=== PATIENT | female | born 1940 | race Caucasian/White ===

== ENCOUNTER 2017-02-01 13:48 | Day surgery (SDC) | payer OTHER ==
[2017-02-01] MEDS ORDERED: BENADRYL ONE (14:14)
[2017-02-01] MEDS ORDERED: NS 250 ML ONE (14:14)
[2017-02-01] MEDS ORDERED: TYLENOL ONE (14:14)
[2017-02-01 14:39] LABS: HEMATOCRIT 34.8 % (37.0-47.0); HEMOGLOBIN 11.3 g/dL (12.0-16.0); MCH 32.8 PG (27-31); MCHC 32.5 g/dL (33-37); MCV 101.2 FL (81-99); PLT 10 X1000 (130-400); RBC 3.44 XMIL (4.2-5.4)
[2017-02-01 17:27] VITALS: BP 145/67
== END 2017-02-01 17:28 | disposition home or self-care (01) ==
LOC: INF 13:48
PROVIDERS: ATTEND Internal Medicine
DX: D69.6 Thrombocytopenia, unspecified (principal); C34.90 Malignant neoplasm of unspecified part of unspecified bronchus or lung; D46.9 Myelodysplastic syndrome, unspecified; Z79.899 Other long term (current) drug therapy
CPT/HCPCS: 36430; 85027; 86850; 86900; 86901; J7050; P9035

== ENCOUNTER 2017-02-06 13:10 | Inpatient (IN) ==
[2017-02-06] MEDS ORDERED: NS 1,000 ML IV PRN (13:29)
--- NOTE | 2017-02-06 13:31 | PROVIDER DOCUMENTATION ---
HPI-General Adult - General Stated Complaint: HEADACHE LOW PLATELETS Time Seen by Provider: 02/06/17 13:25 Source: patient, family Allergies/Adverse Reactions: Patient Allergies Allergy/AdvReac Type Severity Reaction Status Date / Time No Known Allergies Allergy Unverified 01/13/16 16:41 Home Medications: Home Medication List Medication Instructions Recorded Confirmed Last Taken Type Fenofibrate [Tricor] 145 mg PO DAILY 02/06/17 02/06/17 02/06/17 History LOVAstatin [Mevacor] 20 mg PO DAILY 02/06/17 02/06/17 02/06/17 History Montelukast Sodium [Singulair] 10 mg PO DAILY 02/06/17 02/06/17 02/06/17 History Omeprazole [Prilosec] 20 mg PO DAILY 02/06/17 02/06/17 02/06/17 History Pantoprazole [Protonix] 40 mg PO DAILY@0700 02/06/17 02/06/17 02/06/17 History - History of Present Illness -Gen Adult Nature of Presenting Problems: patient is a 76 y/o F that presents to the ER with headache and weakness from Dr.H García's office. wants patient to be a direct admit due platelet count was 10, she received platelets last week. Patient has history of Lung CA and MDS. She reports having fever, diarrhea and shortness of breath over the past few days. Location of Pain/Injury: reports: head Quality of Pain: reports: aching Severity: reports: mild Onset/Duration: reports: unsure Timing: reports: still present, constant Context/Activities at Onset: reports: none Modifying Factors: improves with: nothing Associated Symptoms: reports: diarrhea, fatigue, fever/chills, headaches, shortness of breath, weakness. denies: back/neck pain, constipation, dizziness , EENT symptoms, nausea, vomiting Similar Symptoms Previously?: No Recently seen or treated by another doctor?: Yes Review of Systems - Adult - REVIEW OF SYSTEMS - ADULT Constitutional: reports: fever, fatique. denies: chills Eyes: reports: no symptoms reported Ears, Nose, Mouth & Throat: reports: no symptoms reported Cardiovascular: denies: chest pain, orthopnea, palpitations, syncope Respiratory: reports: shortness of breath. denies: cough, wheezing Gastrointestinal: reports: diarrhea. denies: abdominal pain, nausea, vomiting Genitourinary: reports: no symptoms reported Musculoskeletal: reports: muscle weakness. denies: back pain, joint pain Integumentary: reports: no symptoms reported Neurological: reports: headache/migraines. 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) Respiratory: reports: COPD, cancer (lung) Gastrointestinal: reports: GERD, ulcer - PRIOR SURGERIES/PROCEDURES Surgical/Procedure History: reports: appendectomy, hysterectomy, orthopedic ( extremity), back/neck - IMMUNIZATION STATUS Childhood Immunizations: See Nurse Assessment Flu Vaccine: See Nurse Assessment - FAMILY HISTORY Family History: reviewed, not pertinent - SOCIAL HISTORY Smoking: quit greater than 1 year, cigarettes Living Situation: family Physical Exam-General - PHYSICAL EXAM-ADULT Initial Vital Signs Reviewed: Yes - CONSTITUTIONAL General Appearance: alert, mild distress - EYES Eyes: PERRL/EOMI, pink conjunctivae - HEAD, EARS, NOSE, MOUTH & THROAT HENMT: normocephalic/atraumatic, moist mucous membranes, normal ENT inspection - RESPIRATORY Respiratory: respiratory distress (mild), decreased breath sounds (right), rales (right base), increased rate - CARDIOVASCULAR Cardiovascular: regular rate, rhythm, no murmur - GASTROINTESTINAL (ABDOMEN) Abdominal Exam: normal bowel sounds, non tender, soft, no organomegaly, no pulsatile mass - MUSCULOSKELETAL Extremity: normal range of motion, normal inspection - SKIN Integumentary: normal color, warm/dry - NEUROLOGIC Neurologic: grossly normal, no motor/sensory deficits - PSYCHIATRIC Psych/Mental Status: normal mood/affect, normal thought content, normal thought process, oriented x 3 Progress - PLAN OF CARE/RESULTS Progress/Plan/Lab Results: Vital Signs Pulse Pulse Pulse Pulse Resp BP BP 02/06/17 15:35 93 H 29 H 102/51 02/06/17 15:29 94 H 20 100/53 02/06/17 15:25 93 H 27 H 100/53 02/06/17 14:56 100 H 105 H 98 H 104/53 02/06/17 14:51 102 H 26 H 104/53 02/06/17 14:25 96 H 22 120/58 02/06/17 13:37 97 H 26 H 102/47 BP BP Pulse Ox 02/06/17 15:35 97 02/06/17 15:29 96 02/06/17 15:25 96 02/06/17 14:56 104/43 102/47 02/06/17 14:51 91 L 02/06/17 14:25 94 L 02/06/17 13:37 No Known Allergies Allergy (Unverified 01/13/16 16:41) Fenofibrate [Tricor] 145 mg PO DAILY 02/06/17 LOVAstatin [Mevacor] 20 mg PO DAILY 02/06/17 Montelukast Sodium [Singulair] 10 mg PO DAILY 02/06/17 Omeprazole [Prilosec] 20 mg PO DAILY 02/06/17 Pantoprazole [Protonix] 40 mg PO DAILY@0700 02/06/17 Laboratory 02/06/17 02/06/17 02/06/17 15:25 13:40 13:40 WBC RBC Hgb Hct MCV MCH MCHC RDW Std Deviation Plt Count MPV Immature Gran % (Auto) Neut % (Auto) Lymph % (Auto) Phelps % (Auto) Eos % (Auto) Baso % (Auto) Immature Gran # (Auto) Neut # (Auto) Lymph # (Auto) Phelps # (Auto) Eos # (Auto) Baso # (Auto) Segmented Neutrophils Band Neutrophils Lymphocytes Monocytes Eosinophils Basophils Metamyelocytes Myelocytes Promyelocytes Nucleated RBCs Atypical Lymphocytes Blast Cells Hypochromia Vacuolization Toxic Granulation Dohle Bodies Large Platelets Polychromasia Poikilocytosis Basophilic Stippling Anisocytosis Microcytosis Macrocytosis Spherocytes Sickle Cells Target Cells Ovalocytes Stomatocytes [place] Bodies [place] Cells Unidentified Cells Schistocytes PT 10.7 INR 1.05 PTT (Actin FS) 30.5 Specimen Type ARTERIAL Sample Site L RADIAL pH 7.45 pCO2 37 pO2 72 HCO3 26.2 H Base Excess 1.7 Oxyhemoglobin 93.6 L ABG O2 Sat (Calculated) 14.1 L ABG O2 Saturation 96.9 ABG Carboxyhemoglobin 1.80 ABG Methemoglobin 1.5 Hadley Test YES A-a O2 Difference 138.0 Total Hemoglobin 10.7 L Lactate 0.70 Liter Flow 4.0 Blood Gas Modality ROOM AIR FiO2 % 36.0 Sodium 137 Potassium 4.5 Chloride 98 Carbon Dioxide 26 Anion Gap 13 BUN 38 H Creatinine 1.3 H Estimated GFR/1.73 m2 40 BUN/Creatinine Ratio 29 Glucose 108 H Calculated Osmolality 283 Calcium 9.5 Total Bilirubin 0.83 AST 16 ALT 13 Alkaline Phosphatase 69 Total Protein 7.1 Albumin 3.5 Globulin 3.6 Albumin/Globulin Ratio 1.0 02/06/17 13:40 WBC 1.25 L RBC 2.77 L Hgb 9.1 L Hct 27.5 L MCV 99.3 H MCH 32.9 H MCHC 33.1 RDW Std Deviation 14.2 Plt Count < 6 L* MPV 12.0 H Immature Gran % (Auto) 7.2 H Neut % (Auto) 38.4 L Lymph % (Auto) 47.2 Phelps % (Auto) 4.8 Eos % (Auto) 1.6 Baso % (Auto) 0.8 Immature Gran # (Auto) 0.09 H Neut # (Auto) 0.48 L* Lymph # (Auto) 0.59 L Phelps # (Auto) 0.06 L Eos # (Auto) 0.02 Baso # (Auto) 0.01 Segmented Neutrophils Cancelled Band Neutrophils Cancelled Lymphocytes Cancelled Monocytes Cancelled Eosinophils Cancelled Basophils Cancelled Metamyelocytes Cancelled Myelocytes Cancelled Promyelocytes Cancelled Nucleated RBCs Cancelled Atypical Lymphocytes Cancelled Blast Cells Cancelled Hypochromia Cancelled Vacuolization Cancelled Toxic Granulation Cancelled Dohle Bodies Cancelled Large Platelets Cancelled Polychromasia Cancelled Poikilocytosis Cancelled Basophilic Stippling Cancelled Anisocytosis Cancelled Microcytosis Cancelled Macrocytosis Cancelled Spherocytes Cancelled Sickle Cells Cancelled Target Cells Cancelled Ovalocytes Cancelled Stomatocytes Cancelled [place] Bodies Cancelled [place] Cells Cancelled Unidentified Cells Cancelled Schistocytes Cancelled PT INR PTT (Actin FS) Specimen Type Sample Site pH pCO2 pO2 HCO3 Base Excess Oxyhemoglobin ABG O2 Sat (Calculated) ABG O2 Saturation ABG Carboxyhemoglobin ABG Methemoglobin Hadley Test A-a O2 Difference Total Hemoglobin Lactate Liter Flow Blood Gas Modality FiO2 % Sodium Potassium Chloride Carbon Dioxide Anion Gap BUN Creatinine Estimated GFR/1.73 m2 BUN/Creatinine Ratio Glucose Calculated Osmolality Calcium Total Bilirubin AST ALT Alkaline Phosphatase Total Protein Albumin Globulin Albumin/Globulin Ratio Orders Category Date Time Status Orthostatic Vital Signs NOW Care 02/06/17 13:30 Active Saline Loc DIRECTED Care 02/06/17 13:29 Active CHEST-2 VIEWS [RAD] Stat Exams 02/06/17 13:31 Draft ABG [RESP] Routine Lab 02/06/17 15:25 Completed BLOOD CULTURE [BLDCUL] Stat Lab 02/06/17 13:45 Results CBC WITH ELECTRONIC DIFF [HEME] Stat Lab 02/06/17 13:40 Completed COMPREHENSIVE METABOLIC PANEL [CHEM] Stat Lab 02/06/17 13:40 Completed OCCULT BLOOD NON-FECES Stat Lab 02/06/17 13:44 Ordered OCCULT BLOOD SCREENING [STOOL] Stat Lab 02/06/17 13:44 Ordered PROTIME WITH INR [COAG] Stat Lab 02/06/17 13:40 Completed PTT [COAG] Stat Lab 02/06/17 13:40 Completed TYPE & SCREEN [BBK] Stat Lab 02/06/17 13:40 Results URINALYSIS W/POSS RFLX CULT [URINALYSIS] Stat Lab 02/06/17 13:36 Uncollected 0.9% Sodium Chloride Inj [Ns] 1,000 ml Med 02/06/17 13:29 Active IV 125 mls/hr EKG [EKG] Stat Ther 02/06/17 13:30 Ordered - XRAY 1 XRAY Study: Chest Impression: Abnormal XRAY Interpretation: increased density mid and lower right lung with pleural thickening - CONSULTS/PCP/HOSPITALIST Notification #1 *Consult/PCP/Hospitalist*: Time Discussed: 15:40 Consult Disposition: Admit Departure - Departure Time of Disposition Order: 15:41 DIAGNOSIS: Thrombocytopenia, Immunocompromised state Neutropenia Qualifiers: Neutropenia type: secondary to cancer chemotherapy Qualified Code(s): D70.1 - Agranulocytosis secondary to cancer chemotherapy Disposition: ADMITTED INPATIENT 09 Certified Medical Emergency: Emergent Condition: Stable Attestation - Scribe Verification/Attestation Scribe:: Maik Cortes Acting as Scribe for:: Diogo Mcdonald Scribe documention review:: This chart was documented by a scribe and accurately reflects the service the provider performed and the decisions made by the provider. Physician Attestation - Physician Attestation I, the provider, attest to the following statement:: Diogo Mcdonald Physician documentation Attestation:: This documentation recorded by the scribe accurately reflects the service I personally performed and the decisions made by me.
[2017-02-06 14:43] LABS: ALBUMIN 3.5 g/dL (3.5-5.0); CALCIUM 9.5 mg/dL (8.8-10.2); POTASSIUM 4.5 mmol/L (3.5-5.1); TOTAL BILIRUBIN 0.83 mg/dL (0.20-1.00); TOTAL PROTEIN 7.1 g/dL (6.3-8.3)
[2017-02-06 14:59] LABS: BASO% 0.8 % (0.0-0.8); EOS# 0.02 X1000 (0.0-0.7); EOS% 1.6 % (0.0-10.0); HEMATOCRIT 27.5 % (37.0-47.0); HEMOGLOBIN 9.1 g/dL (12.0-16.0); IMM GRAN# 0.09 X1000 (0.0-0.04); IMM GRAN% 7.2 % (0.0-0.5); LYMPH# 0.59 X1000 (1.2-3.4); LYMPH% 47.2 % (20.5-51.1); MCH 32.9 PG (27-31); MCHC 33.1 g/dL (33-37); MCV 99.3 FL (81-99); MONO# 0.06 X1000 (0.11-0.59); MONO% 4.8 % (1.7-9.3); NEUT% 38.4 % (42.2-75.2); RBC 2.77 XMIL (4.2-5.4)
[2017-02-06 15:01] LABS: MANUAL DIFF NEEDED? NO
[2017-02-06 15:02] LABS: PLT < 6 X1000 (130-400)
--- NOTE | 2017-02-06 15:13 | Diag Imaging Result Document ---
PROCEDURE NAME: CHEST-2 VIEWS - 02/06/2017 FRONTAL AND LATERAL CHEST, TWO VIEWS: COMPARISON: 10/24/2016. FINDINGS: There is increased density in the mid and lower right lung with pleural thickening or an effusion. The overall appearance is quite similar to that of the prior exam. Old fracture to the posterior right fifth rib. The left lung remains well expanded and clear. The vessels are not distended. IMPRESSION: Stable chest.
[2017-02-06 15:21] LABS: INR 1.05; PROTIME 10.7 Seconds (9.2-11.7); PTT 30.5 Seconds (22.0-36.0)
[2017-02-06 15:34] LABS: ALLEN TEST YES; BE 1.7 mmoll (-3.0-3.0); BLOOD TYPE ARTERIAL; DRAW SITE L RADIAL; METHB 1.5 % (0.0-1.5); O2(CT) 14.1 mL/dL (15.0-23.0); PCO2(98.6) 37 mmHg (35-45); PO2(98.6) 72 mmHg (60-100); SAMPLE BLOOD; SAO2 96.9 % (95.0-100.0); THB 10.7 g/dL (11.5-17.4); pH(98.6) 7.45 (7.35-7.45)
[2017-02-06 15:36] LABS: MODALITY ROOM AIR
[2017-02-06] MEDS ORDERED: DUONEB (A & A) INH PRN (15:50)
[2017-02-06] MEDS ORDERED: VANCOMYCIN IV PER PHARMACY MISC SCH (16:00)
[2017-02-06] MEDS: ZOSYN 3.375 GM/NS 50 ML IV SCH (17:03)
[2017-02-06 17:11] LABS: IRON SATURATION 21 %; TIBC 245 ug/dL; TOTAL IRON 52 ug/dL (49-151); UNBOUND IRON 193 ug/dL (112-346)
--- NOTE | 2017-02-06 17:12 | Diag Imaging Result Document ---
PROCEDURE NAME: ANGIOGRAM/PULMONARY ARTERIES - 02/06/2017 CT PULMONARY ANGIOGRAM WITH INTRAVENOUS 02/06/2017: A CT dose reduction protocol was used. COMPARISON: 01/13/2016. FINDINGS: Axial CT images of the chest were obtained after administering intravenous contrast. Coronal MIP images were generated. There is no pulmonary embolism. Stable significant volume loss on the right with shift of the heart into the right side of the chest. Stable severe COPD. Stable areas of consolidation in the right upper and lower lung zones. No new infiltrates. Stable hiatal hernia. There is a posterior right 9th rib fracture that is healing. This was not present previously. Otherwise, there are stable right-sided rib deformities. IMPRESSION: Increasing chronic rib fractures on the right. Otherwise, no acute disease or change from prior. [facility]
[2017-02-06 17:24] LABS: FREE T4 1.23 ng/dL (0.93-1.70)
[2017-02-06 17:45] LABS: RETIC% 0.3 % (0.8-2.1); RETIC-HE 29.9 PG (28.2-36.6)
[2017-02-06 18:03] LABS: URINE MICRO REVIEW NEEDED? NO; URINE SOURCE CLEAN CATCH
[2017-02-06 18:09] LABS: BILIRUBIN URINE NEGATIVE (NEGATIVE); BLOOD URINE MODERATE (NEGATIVE); COLOR YELLOW; GLUCOSE URINE NEGATIVE (NEGATIVE); LEUKOCYTES URINE MODERATE (NEGATIVE); NITRITE URINE NEGATIVE (NEGATIVE); PROTEIN URINE 30 mg/dL (NEGATIVE); TURBIDITY URINE CLEAR (CLEAR); UR EPITHELIAL CELLS <10 /HPF (<10); URINE BACTERIA 2+ /HPF; URINE CULTURE NEEDED? YES; URINE WBC TNTC /HPF (<10); UROBILINOGEN URINE NORMAL (NORMAL)
[2017-02-06] MEDS: DUONEB (A & A) INH SCH ×2 (19:30→23:30)
[2017-02-06] MEDS: NS 1,000 ML IV SCH (20:00)
[2017-02-06] MEDS: MORPHINE IV PRN (20:17)
[2017-02-06] MEDS ORDERED: TYLENOL PO ONE (20:36)
[2017-02-06] MEDS ORDERED: VANCOMYCIN 2 GM in NS 500 ML IV ONE (21:00)
[2017-02-06] MEDS: LEVAQUIN 750 MG/D5W 150 ML IV SCH (21:03)
--- NOTE | 2017-02-06 21:03 | HISTORY AND PHYSICAL ---
CHIEF COMPLAINT: Shortness of breath, hemoptysis. HISTORY OF PRESENT ILLNESS: Mrs. Perez is a 76-year-old female with a history of non- small cell lung cancer, COPD, dextrocardia, recurrent pneumonia who is followed by Drs. García and Maricarmen on an outpatient basis. She is currently on Odeon chemotherapy which was last performed last Monday. The patient states that for 4 days she has been having fairly severe diarrhea, shortness of breath and ultimately hemoptysis. She states that her diarrhea has stopped but she has been having worsening shortness of breath and when asked to quantify her hemoptysis she said she is coughing holger blood. She reports a fever of 102.3. She denies any overt chest pain. She denies any abdominal pain. Again, her diarrhea has resolved. She also reports having fairly severe reflux type symptoms with bile production but no nausea, vomiting. She reports orthopnea but no lower extremity edema and no other acute symptoms. She went to Dr. García' s office this morning. Dr. García directed her toward the ER. In the ER today labs and diagnostics were done. She was noted to be pancytopenic with critical thrombocytopenia and neutropenia. A chest x-ray shows increased density in the mid and lower right lung with pleural thickening or effusion and overall appearance is similar to that of the previous exam. Her vital signs are stable, she is now going to be admitted for further treatment and evaluation. PAST MEDICAL HISTORY: 1. Non-small cell lung cancer. 2. COPD. 3. Chronic anemia. 4. Hyperlipidemia. 5. Dextrocardia. 6. Recurrent pneumonia. 7. Myelodysplastic syndrome. 8. Osteoarthritis. PAST SURGICAL HISTORY: Thoracotomy, total hip arthroplasty, Rasta fundoplication, hysterectomy, appendectomy, hemorrhoidectomy, left hand surgery. SOCIAL HISTORY: Patient is and lives alone. She quit smoking in the . She denies alcohol or illicit drug use. FAMILY HISTORY: Significant for CAD, cancer and diabetes. ALLERGIES: No known drug allergies. HOME MEDICATIONS: TriCor 145 mg p.o. daily, Mevacor 20 mg daily, Singulair 10 mg p.o. daily, Protonix 40 mg daily. REVIEW OF SYSTEMS: Fourteen-point review of systems obtained and found to be negative with the exception of the HPI. PHYSICAL EXAMINATION: VITAL SIGNS: Blood pressure is 107/52, heart rate 73, respiratory 23, O2 saturation 97%. Temperature has not been recorded. GENERAL: This is an elderly female lying in hospital bed in no acute distress. NEUROLOGIC: The patient is awake, alert, oriented. She follows commands without focal deficits. HEENT: Head atraumatic, normocephalic. Pupils equal, round, reactive to light. Oral mucosa is moist. Trachea is midline. No JVD. No carotid bruits. CHEST: Diminished at the bases with perhaps some scattered rhonchi and no increased work of breathing noted. CV: Tachy regular, S1-S2 is noted. Heart sounds are heard over the right chest. There is a 2/6 murmur noted. GI: Soft, nondistended, nontender. Bowel sounds positive. EXTREMITIES: Trace edema. Diminished pulses but palpable bilaterally. DIAGNOSTIC DATA: Chest x-ray shows stable chest, increased density in the mid and right lower lung zones of pleural thickening or effusion. WBC 1.25, hemoglobin 9.1, hematocrit 27.5, platelet count less than 6000, neutrophils are 0.48. PT 10.7, INR 1.07. ABG on room air pH 7.45, CO2 37, PO2 72, bicarb 26.2, sodium 137, potassium 4.5, chloride 98, CO2 26, anion gap 13, BUN 38, creatinine 1.3, glucose 108, calcium 9.5. LFTs within normal limits. ASSESSMENT AND PLAN: 1. Shortness of breath/hemoptysis: Unclear as to the etiology, likely multifactorial, for now we are going to rule out PE with a CTA. We will treat for recurrent pneumonia and given her history of Pseudomonas in the past we will double cover her with Levaquin and Zosyn. We are going to consult Dr. Hernadez and Dr. García. Will continue oxygen as needed, p.r.n. nebs and aggressive pulmonary toilet. 2. Pancytopenia: The patient is going to receive 2 units of platelets now. We are going to check full iron studies and trend her blood counts, Dr. García has been consulted. 3. Recurrent pneumonia: Blood cultures have been obtained. We are going to continue broad- spectrum antibiotics, breathing treatments and aggressive pulmonary toilet. 4. Mild renal insufficiency: Likely prerenal, fluids have been added. 5. Non-small cell lung cancer: Dr. Hernadez and Dr. García have been consulted. Patient is on chemo, we will defer to pulmonology and Hematology/Oncology. 6. MDS. Aware. has been consulted. The patient will receive 2 units of platelets today. 7. Gastrointestinal and deep vein thrombosis prophylaxis provided with proton pump inhibitor and Lovenox. Further recommendations to follow. Dictated by SEYMOUR Johnson for Reina Reyes MD The patient was seen and examined by me. I agree with the assessment and plan as dictated. [facility]
[2017-02-07] MEDS ORDERED: FLEXERIL PO ONE (02:18)
[2017-02-07] MEDS: DUONEB (A & A) INH SCH ×5 (03:30→22:47)
[2017-02-07] MEDS: ZOSYN 3.375 GM/NS 50 ML IV SCH ×4 (03:57→22:00)
[2017-02-07 06:57] LABS: CALCIUM 8.7 mg/dL (8.8-10.2); POTASSIUM 4.5 mmol/L (3.5-5.1)
[2017-02-07 07:05] LABS: BASO% 5.5 % (0.0-0.8); EOS# 0.01 X1000 (0.0-0.7); EOS% 1.8 % (0.0-10.0); HEMATOCRIT 21.9 % (37.0-47.0); HEMOGLOBIN 7.1 g/dL (12.0-16.0); LYMPH# 0.12 X1000 (1.2-3.4); LYMPH% 21.8 % (20.5-51.1); MANUAL DIFF NEEDED? YES; MCHC 32.4 g/dL (33-37); MCV 101.9 FL (81-99); MONO# 0.04 X1000 (0.11-0.59); MONO% 7.3 % (1.7-9.3); MPV 8.3 FL (7.4-10.4); NEUT% 63.6 % (42.2-75.2); PLT < 6 X1000 (130-400); RBC 2.15 XMIL (4.2-5.4)
[2017-02-07 07:29] LABS: BANDS 12 % (0-1); LYMPHS 20 % (21-51); NRBC 1 % (0-0)
[2017-02-07 07:30] LABS: HYPOCHROM 1+
[2017-02-07] MEDS ORDERED: LOVENOX SUBQ SCH (09:00)
[2017-02-07] MEDS ORDERED: TYLENOL PO ONE ×2 (11:34→17:47)
[2017-02-07] MEDS ORDERED: BENADRYL PO ONE ×2 (11:34→17:47)
[2017-02-07] MEDS: NS 1,000 ML IV SCH ×2 (11:42→17:28)
[2017-02-07] MEDS: PRILOSEC PO SCH (11:57)
[2017-02-07] MEDS ORDERED: SOLU-MEDROL IV ONE (13:33)
[2017-02-07] MEDS: MEVACOR PO SCH (14:20)
[2017-02-07] MEDS: SINGULAIR PO SCH (14:20)
[2017-02-07] MEDS: TRICOR PO SCH (14:25)
[2017-02-07] MEDS: GRANIX SUBQ SCH (14:30)
--- NOTE | 2017-02-07 16:48 | PROGRESS NOTE ---
DATE: 02/07/2017 SUBJECTIVE: The patient is resting comfortably on the stretcher. She states that she still feels short of breath. She is on 4 L of supplemental oxygen which is which she uses at home. Her platelet count is still quite low. OBJECTIVE: Vital Signs: Temperature 99 degrees, blood pressure 98/60, heart rate 102, respirations 18, O2 saturations 95% on 4 L nasal cannula. General: This is a chronically ill- appearing elderly female lying in bed in no acute distress. Head: Normocephalic, atraumatic. Heart: S1, S2. Normal. Tachycardic. Lungs: Coarse breath sounds bilaterally. No wheezing. No rales. Abdomen: Positive bowel sounds. Soft, nontender, nondistended. Extremities: Trace edema in the left lower extremity. Neurologic: The patient is alert and oriented x3. LABS: White blood cell count 0.5, hemoglobin 7.1, hematocrit 21, platelet count : less than 6, ANC 0.35. BUN 29, creatinine 1.2, potassium 4.5, sodium 141, glucose 125. ASSESSMENT AND PLAN: 1. Acute on chronic hypoxemic respiratory failure. The patient is back to her baseline level of supplemental oxygen. We will continue with bronchodilator therapy and IV antibiotics. Pulmonary has been consulted for further assistance. 2. Myelodysplastic syndrome. The patient is currently pancytopenic. Oncology has been consulted for further management. The patient has received 2 bags of platelets today in addition to the 2 bags that she received yesterday. 3. History of lung cancer. Aware. 4. Neutropenia. Continue with neutropenic precautions. Management as per Hematology/Oncology. [facility]
[2017-02-07] MEDS: LEVAQUIN 750 MG/D5W 150 ML IV SCH (20:30)
--- NOTE | 2017-02-07 21:44 | CONSULTATION ---
DATE OF CONSULTATION: 02/07/2017 REASON FOR CONSULTATION: Hemoptysis. HISTORY OF PRESENT ILLNESS: Ms. Godinez is a 76-year-old white female with a [id number] history for tobacco, status post chemotherapy and radiation therapy for a stage III lung cancer diagnosed in 2010 with no evidence of recurrence, who developed high risk myelodysplastic syndrome with refractory anemia and excess blast identified on a bone marrow of 01/23/2016. The patient was seen in September when she was admitted to the hospital with a gram-negative pneumonia and developed acute hypoxemic respiratory failure on the background of chronic hypercapnic respiratory failure. She did require BiPAP. She did not require intubation. End of life discussions during that admission were notable in that patient requested no intubation and only comfort measures if it appeared that she would not survive. Fortunately she did survive and was discharged home. The patient developed fevers this weekend greater than 102 degrees. Blood work revealed profound thrombocytopenia with a platelet count less than 6000 and absolute neutrophil count of 1000. Platelet count has remained low despite transfusion. Absolute neutrophil count remains low at 350. She has had episodes of minor hemoptysis amounting to less than 1/4 cup since her hospital admission. CT pulmonary angiogram was performed which revealed chronic post treatment changes in the right with shift of the heart to the right chest. She reports she remains weak. Her last fever was approximately 24 hours ago. PAST MEDICAL HISTORY/PROBLEM LIST: 1. Stage III lung cancer without evidence of recurrence as per above. 2. Myelodysplastic syndrome as per above. 3. Status post left hip replacement. 4. Status post neck fusion. 5. Status post appendectomy. 6. Status post hysterectomy. 7. Osteoarthritis. 8. Dyslipidemia. 9. Status post surgery on the left hand following fracture. SOCIAL HISTORY: Prior tobacco use but none for several years. No alcohol use. She is . FAMILY HISTORY: Noncontributory to current presentation. REVIEW OF SYSTEMS: As noted in the HPI. PHYSICAL EXAMINATION: General: Reveals a chronically ill-appearing, white female, with no increased work of breathing. Vital Signs: Blood pressure 103/48, heart rate 86, respiration rate 20, oxygen saturation 99% on 50% face mask. HEENT: Pupils are equal and reactive. Oropharynx is clear. Neck: Supple. Chest: Reveals decreased breath sounds right base with bilateral rhonchi. No significant wheezing. Cardiac: Distant heart sounds. Normal S1, normal S2. Abdomen: Soft without hepatosplenomegaly. Extremities: Without edema. LABORATORIES: White blood count 0.55, hemoglobin 7.1, platelet count less than 6000. Sodium 141, potassium 4.5, chloride 104, bicarbonate 25, BUN 29, creatinine 1.2. ProBNP is elevated at 2289. IMPRESSION: A 76-year-old white female with prior treatment for lung cancer without evidence of recurrence, myelodysplastic syndrome, profound thrombocytopenia, neutropenia, fevers, and minor hemoptysis. Hemoptysis is likely related to profound neutropenia, mild uremia, and vascular friability associated with prior radiation treatment in the lung. RECOMMENDATIONS: 1. Platelet management as per Dr. García. She is to receive Granix along with platelet transfusions. 2. Continue broad-spectrum antibiotics as you are doing. 3. Additional recommendations pending hospital course. Would recommend confirming patient's code status in the event she does not continue to improve.
[2017-02-08] MEDS: ZOSYN 3.375 GM/NS 50 ML IV SCH ×3 (03:06→19:11)
[2017-02-08] MEDS: DUONEB (A & A) INH SCH ×6 (03:35→23:35)
[2017-02-08] MEDS: PRILOSEC PO SCH (06:42)
[2017-02-08 07:16] LABS: CALCIUM 8.9 mg/dL (8.8-10.2); HEMATOCRIT 28.1 % (37.0-47.0); HEMOGLOBIN 9.3 g/dL (12.0-16.0); IMM GRAN# 0.05 X1000 (0.0-0.04); IMM GRAN% 8.6 % (0.0-0.5); LYMPH# 0.21 X1000 (1.2-3.4); LYMPH% 36.2 % (20.5-51.1); MANUAL DIFF NEEDED? YES; MCH 31.5 PG (27-31); MCHC 33.1 g/dL (33-37); MCV 95.3 FL (81-99); MONO# 0.02 X1000 (0.11-0.59); MONO% 3.4 % (1.7-9.3); NEUT% 51.8 % (42.2-75.2); POTASSIUM 5.1 mmol/L (3.5-5.1); RBC 2.95 XMIL (4.2-5.4)
[2017-02-08 07:18] LABS: PLT < 6 X1000 (130-400)
[2017-02-08 07:56] LABS: BANDS 4 % (0-1); LYMPHS 44 % (21-51)
[2017-02-08] MEDS: GRANIX SUBQ SCH (09:16)
[2017-02-08] MEDS: VANCOMYCIN 1,500 MG in NS 250 ML IV SCH (09:16)
[2017-02-08] MEDS: TRICOR PO SCH (09:17)
[2017-02-08] MEDS: SINGULAIR PO SCH (09:17)
[2017-02-08] MEDS: MEVACOR PO SCH (09:17)
[2017-02-08] MEDS: MORPHINE IV PRN (11:01)
[2017-02-08] MEDS ORDERED: TYLENOL PO ONE (12:58)
[2017-02-08] MEDS ORDERED: BENADRYL PO ONE (12:58)
[2017-02-08] MEDS ORDERED: SOLU-MEDROL IV ONE (12:59)
--- NOTE | 2017-02-08 13:36 | PROGRESS NOTE ---
DATE: 02/08/2017 SUBJECTIVE: The patient is resting comfortably in bed. She is currently on a Ventimask. She states that she did eat her breakfast this morning. OBJECTIVE: Vital Signs: Temperature 97.8 degrees, blood pressure 117/53, heart rate 84, respirations 17, oxygen saturations 100% on Ventimask. General: This is an elderly female, lying in bed in no acute distress. Head: Normocephalic, atraumatic. Heart: S1, S2. Normal. Regular rate and rhythm. Lungs: Mild expiratory wheezes. No crackles. No rales. Abdomen: Positive bowel sounds. Soft, nontender, nondistended. Extremities: No edema. No cyanosis. No calf tenderness. Neurologic: The patient is alert and oriented x3. No focal deficits noted. LABS: White blood cell count 0.5, hemoglobin 9.3, hematocrit 28, platelets less than 6. Sodium 141, potassium 5.1, chloride 104, CO2 27, BUN 18, creatinine 1, glucose 124. ASSESSMENT AND PLAN: 1. Acute on chronic hypoxemic respiratory failure. The patient is currently on a Ventimask. Continue with intravenous antibiotics and bronchodilator therapy. Pulmonary is following. 2. Neutropenia. The patient is on Granix. Management as per the breaker machine tender. 3. Severe thrombocytopenia. The patient has received several units of platelets, and there has been no response to the transfusions. Further recommendations to follow by the breaker machine tender. 4. Urinary tract infection. Continue on intravenous antibiotic therapy. 5. Myelodysplastic syndrome. Aware.
[2017-02-08] MEDS: LEVAQUIN 750 MG/D5W 150 ML IV SCH (20:57)
[2017-02-08 22:34] LABS: HEMOGLOBIN 8.8 g/dL (12.0-16.0); MCH 31.7 PG (27-31); MCHC 32.6 g/dL (33-37); MCV 97.1 FL (81-99); RBC 2.78 XMIL (4.2-5.4)
[2017-02-08 22:43] LABS: PLT < 6 X1000 (130-400)
[2017-02-09] MEDS: ZOSYN 3.375 GM/NS 50 ML IV SCH ×5 (00:15→22:42)
[2017-02-09] MEDS: DUONEB (A & A) INH SCH ×5 (03:43→19:55)
[2017-02-09] MEDS: PRILOSEC PO SCH (06:30)
[2017-02-09] MEDS: MORPHINE IV PRN ×2 (06:43→22:20)
[2017-02-09 07:48] LABS: AGAP 10; BUN 19 mg/dL (8-22); CALCIUM 9.3 mg/dL (8.8-10.2); CHLORIDE 103 mmol/L (98-107); COSMO 285; POTASSIUM 3.9 mmol/L (3.5-5.1); SODIUM 142 mmol/L (136-145); TCO2 29 mmol/L (25-35)
[2017-02-09 07:53] LABS: EOS# 0.01 X1000 (0.0-0.7); EOS% 1.3 % (0.0-10.0); HEMATOCRIT 27.7 % (37.0-47.0); LYMPH# 0.27 X1000 (1.2-3.4); LYMPH% 34.6 % (20.5-51.1); MANUAL DIFF NEEDED? YES; MCH 31.3 PG (27-31); MCHC 32.5 g/dL (33-37); MCV 96.2 FL (81-99); MONO# 0.07 X1000 (0.11-0.59); NEUT% 55.1 % (42.2-75.2); PLT 6 X1000 (130-400); RBC 2.88 XMIL (4.2-5.4)
[2017-02-09 07:59] LABS: LYMPHS 48 % (21-51); MONO 4 % (1-9)
[2017-02-09] MEDS ORDERED: BENADRYL PO ONE (08:39)
[2017-02-09] MEDS ORDERED: TYLENOL PO ONE (08:39)
[2017-02-09] MEDS ORDERED: SOLU-MEDROL IV ONE (08:40)
[2017-02-09] MEDS: SINGULAIR PO SCH (10:55)
[2017-02-09] MEDS: MEVACOR PO SCH (10:55)
[2017-02-09] MEDS: TRICOR PO SCH (10:55)
[2017-02-09] MEDS ORDERED: NS 500 ML ONE (11:32)
[2017-02-09] MEDS: GRANIX SUBQ SCH (11:39)
--- NOTE | 2017-02-09 16:02 | PALLIATIVE CARE CONSULTATION ---
DATE: 02/09/2017 REQUESTING PHYSICIAN: Arlet García M.D. REASON FOR CONSULTATION: Goals of care. HISTORY OF PRESENT ILLNESS: This is a 76-year-old, female with a past medical history of non-small cell lung cancer, COPD, chronic anemia, hyperlipidemia, dextrocardia, recurrent pneumonia, MDS and osteoarthritis. She was most recently admitted on 02/06/2017 after being referred to the ER by Dr. García for complaints of progressive shortness of breath and hemoptysis. It was also reported that she had severe diarrhea in the days prior to this admission but that has since subsided. She also reported a fever with T-max of 102.3 degrees. Currently Ms. Godinez is sitting up on the bedside. She complains of full body aches. She also complains of shortness of breath that is described as severe with exertion. She states that she is only able to transfer to the bedside commode and back to the bed, and feels very weak and short of breath after doing so. She has 2 daughters that are both at the bedside. The Palliative Care team has been consulted to assist with goals of care. REVIEW OF SYSTEMS: Twelve point review of systems has been conducted and otherwise negative except those mentioned in the HPI. PAST MEDICAL HISTORY: See HPI. PAST SURGICAL HISTORY: 1. Rasta fundoplication. 2. Hysterectomy. 3. Appendectomy. 4. Hemorrhoidectomy. 5. Left hand surgery. 6. Total hip surgery. 7. Thoracotomy. SOCIAL HISTORY: Prior to this admission she lived in an apartment alone. She is a . She is a past smoker. Alcohol and drug use have been denied. She has 2 daughters who are very attentive to her care. FAMILY HISTORY: Positive for CAD, cancer and diabetes mellitus. PHYSICAL EXAMINATION: General: This is an elderly, female, who is sitting up on the bedside. She does not appear to be in any acute distress at this time. HEENT: Atraumatic, normocephalic. Neck: Trachea is midline. Cardiovascular: Increased rate, regular rhythm. Pulmonary: Lung sounds are diminished. Respirations are nonlabored at rest. Abdomen: Soft. Bowel sounds are active. Extremities: Trace edema noted to bilateral lower extremities. Pulses are palpable. IMPRESSION: This is a 76-year-old, female with a past medical history as listed above in the HPI. I met with the patient and her 2 daughters to discuss goals of care. We discussed advanced directives and Power of [employer]. Ms. Godinez does not have either document, however, she voices that her 2 daughters understand her wishes and are to honor those wishes in the event that she is unable to make decisions for herself. She states that she would not want to be intubated or placed on a ventilator for any reason, however, she would want CPR, defibrillation and ACLS medications to stimulate her heart. Therefore a DNR Level 2 Order will be placed. It appears that Ms. Godinez's palliative performance scale is 40% at this time. The Palliative Care team will continue to follow daily until discharge. Thank you for this consultation. Dictated by SEYMOUR Singer for Baljinder Hernadez MD
--- NOTE | 2017-02-09 19:49 | PROGRESS NOTE ---
DATE: 02/09/2017 SUBJECTIVE: The patient states that she does not feel good today. She complains of shortness of breath. She is currently on a Ventimask. OBJECTIVE: Vital Signs: Temperature 97.3 degrees, blood pressure 105/58, heart rate 96, respirations 22, O2 saturations 99% on 50% Ventimask. General: This is an elderly female, lying in bed, in no acute distress. Head: Normocephalic, atraumatic. Heart: S1, S2 normal, tachycardic. Lungs: Clear to auscultation bilaterally. No crackles. No rales. Abdomen: Positive bowel sounds. Soft, nontender, nondistended. Extremities: No edema. No cyanosis. No calf tenderness. Neurologic: The patient is alert and oriented x3. LABS: White blood cell count 0.7, hemoglobin 9, hematocrit 27, platelets 6000. Sodium 142, potassium 3.9, chloride 103, CO2 29, BUN 19, creatinine 0.9. ASSESSMENT AND PLAN: 1. Acute on chronic hypoxemic respiratory failure. The patient remains on a Ventimask. Continue with IV antibiotics and bronchodilator therapy. 2. Neutropenia. Continue on Granix and neutropenic precautions. 3. Severe thrombocytopenia. Management as per the oncologist. The patient is scheduled to receive a transfusion today. 4. Urinary tract infection. Continue on IV antibiotic therapy. The urine culture showed mixed deana. 5. Myelodysplastic syndrome. Aware.
[2017-02-09] MEDS: LEVAQUIN 750 MG/D5W 150 ML IV SCH (20:00)
[2017-02-09] MEDS: VANCOMYCIN 1,500 MG in NS 250 ML IV SCH (22:40)
[2017-02-10] MEDS: DUONEB (A & A) INH SCH ×7 (00:13→19:52)
[2017-02-10] MEDS: ZOSYN 3.375 GM/NS 50 ML IV SCH ×3 (05:06→16:50)
[2017-02-10 07:23] LABS: BASO% 0.7 % (0.0-0.8); EOS# 0.01 X1000 (0.0-0.7); EOS% 0.7 % (0.0-10.0); HEMATOCRIT 27.2 % (37.0-47.0); IMM GRAN# 0.06 X1000 (0.0-0.04); LYMPH# 0.54 X1000 (1.2-3.4); LYMPH% 36.2 % (20.5-51.1); MANUAL DIFF NEEDED? YES; MCHC 33.1 g/dL (33-37); MCV 96.8 FL (81-99); MONO# 0.06 X1000 (0.11-0.59); NEUT% 54.4 % (42.2-75.2); RBC 2.81 XMIL (4.2-5.4)
[2017-02-10 07:24] LABS: AGAP 8; BUN 22 mg/dL (8-22); CALCIUM 9.6 mg/dL (8.8-10.2); CHLORIDE 101 mmol/L (98-107); COSMO 287; MAGNESIUM 1.7 mg/dL (1.5-2.7); PLT < 6 X1000 (130-400); POTASSIUM 3.8 mmol/L (3.5-5.1); SODIUM 143 mmol/L (136-145); TCO2 34 mmol/L (25-35)
[2017-02-10] MEDS: PRILOSEC PO SCH (07:42)
[2017-02-10 07:47] LABS: BANDS 4 % (0-1); LYMPHS 38 % (21-51); MONO 4 % (1-9)
--- NOTE | 2017-02-10 07:56 | Diag Imaging Result Document ---
PROCEDURE NAME: CHEST-PORTABLE - 02/10/2017 SINGLE FRONTAL RADIOGRAPH OF THE CHEST: COMPARISON: 02/06/2017. FINDINGS: There is increased opacity at the right mid and lower lung zone suggesting increasing effusion most likely with associated adjacent atelectasis and/or infiltrate. The left lung is stable. There is stable volume loss on the right with rightward mediastinal shift. IMPRESSION: Increased opacity on the right likely representing an increasing effusion.
[2017-02-10] MEDS ORDERED: TYLENOL PO ONE (08:56)
[2017-02-10] MEDS ORDERED: BENADRYL PO ONE (08:56)
[2017-02-10] MEDS ORDERED: SOLU-MEDROL IV ONE (08:57)
[2017-02-10] MEDS: GRANIX SUBQ SCH (09:27)
[2017-02-10] MEDS: MEVACOR PO SCH (09:27)
[2017-02-10] MEDS: TRICOR PO SCH (09:27)
[2017-02-10] MEDS: SINGULAIR PO SCH (09:27)
[2017-02-10] MEDS: MYLICON PO SCH ×3 (10:36→16:50)
--- NOTE | 2017-02-10 14:56 | PALLIATIVE CARE PROGRESS NOTE ---
DATE: 02/10/2017 SUBJECTIVE: Ms Godinez continues to complain of shortness of breath. However she states that she is not in any pain today. OBJECTIVE: General: This is an elderly female lying in the bed, does not appear to be in any acute distress. HEENT: Atraumatic, normocephalic. Cardiovascular: Increased rate. Regular rhythm. Pulmonary: Lung sounds are clear. Respirations are slightly labored especially with conversation. Abdomen: Soft. Extremities: Pulses are palpable. Neuro: Ms Godinez is alert and oriented to person, place and time. ASSESSMENT AND PLAN: As previously mentioned Ms. Godinez continues to complain of shortness of breath. She states that she does not have any pain at this time which is an improvement from yesterday's visit. Answered questions regarding the outpatient palliative care program. I also left an advanced directive and power of assistant county attorney form per the patient and family's request. The palliative care team will continue to follow as needed. Dictated by SEYMOUR Singer for Baljinder Hernadez MD
--- NOTE | 2017-02-10 17:35 | PROGRESS NOTE ---
DATE: 02/10/2017 SUBJECTIVE: The patient is resting comfortably in bed. She does complain of shortness of breath and gas pain. OBJECTIVE: Vital Signs: Temperature 98 degrees, blood pressure 133/50, heart rate 94, respirations 19, O2 saturations 97% on a Ventimask. General: This is a chronically ill- appearing, elderly female, lying in bed, in no acute distress. Head: Normocephalic, atraumatic. Heart: S1, S2 normal, tachycardic. Lungs: Clear to auscultation with mild expiratory wheezes. Extremities: No edema. No cyanosis. No calf tenderness. Neurologic: The patient is alert and oriented x3. LABORATORY STUDIES: White blood cell count 1.4, hemoglobin 9, hematocrit 27, platelets less than 6. ASSESSMENT/PLAN: 1. Acute on chronic hypoxemic respiratory failure. Continue with bronchodilator therapy and IV antibiotics plus supplemental oxygen. 2. Neutropenia. This appears to be improving slowly. The patient is on Granix. Further management as per the oncologist. 3. Severe thrombocytopenia. The patient is scheduled to receive platelets again today. Management as per the oncologist. 4. Myelodysplastic syndrome. Aware. 5. Urinary tract infection. Continue on IV antibiotic therapy.
[2017-02-10] MEDS: LEVAQUIN 750 MG/D5W 150 ML IV SCH (20:00)
[2017-02-10] MEDS: VANCOMYCIN 1,500 MG in NS 250 ML IV SCH (21:28)
[2017-02-11] MEDS: ZOSYN 3.375 GM/NS 50 ML IV SCH ×6 (00:38→23:56)
[2017-02-11] MEDS: DUONEB (A & A) INH SCH ×5 (02:05→21:38)
[2017-02-11] MEDS: PRILOSEC PO SCH (06:28)
[2017-02-11 06:52] LABS: AGAP 12; BUN 17 mg/dL (8-22); CALCIUM 10.8 mg/dL (8.8-10.2); CHLORIDE 97 mmol/L (98-107); COSMO 284; POTASSIUM 3.7 mmol/L (3.5-5.1); SODIUM 141 mmol/L (136-145); TCO2 32 mmol/L (25-35)
[2017-02-11 06:53] LABS: BASO% 1.4 % (0.0-0.8); EOS# 0.01 X1000 (0.0-0.7); EOS% 0.5 % (0.0-10.0); HEMATOCRIT 30.4 % (37.0-47.0); HEMOGLOBIN 9.7 g/dL (12.0-16.0); IMM GRAN# 0.19 X1000 (0.0-0.04); IMM GRAN% 8.6 % (0.0-0.5); LYMPH# 0.51 X1000 (1.2-3.4); MANUAL DIFF NEEDED? YES; MCH 31.2 PG (27-31); MCHC 31.9 g/dL (33-37); MCV 97.7 FL (81-99); MONO# 0.15 X1000 (0.11-0.59); MONO% 6.8 % (1.7-9.3); NEUT% 59.7 % (42.2-75.2); RBC 3.11 XMIL (4.2-5.4)
[2017-02-11 07:04] LABS: PLT 6 X1000 (130-400)
[2017-02-11 07:20] LABS: BANDS 20 % (0-1); LYMPHS 20 % (21-51); MONO 10 % (1-9)
[2017-02-11] MEDS ORDERED: LASIX IV ONE ×2 (08:57→09:00)
[2017-02-11] MEDS ORDERED: SOLU-MEDROL IV ONE ×2 (10:15→10:45)
[2017-02-11] MEDS ORDERED: BENADRYL PO ONE (10:18)
[2017-02-11] MEDS ORDERED: TYLENOL PO ONE ×2 (10:18→10:33)
[2017-02-11] MEDS: TRICOR PO SCH (10:31)
[2017-02-11] MEDS: MYLICON PO SCH ×3 (10:32→16:44)
[2017-02-11] MEDS: MEVACOR PO SCH (10:32)
[2017-02-11] MEDS: SINGULAIR PO SCH (10:32)
[2017-02-11] MEDS ORDERED: BENADRYL IV ONE (10:34)
[2017-02-11] MEDS: GRANIX SUBQ SCH (10:35)
[2017-02-11] MEDS ORDERED: NS 500 ML ONE (11:06)
--- NOTE | 2017-02-11 17:01 | PROGRESS NOTE ---
DATE: 02/11/2017 SUBJECTIVE: The patient complains of shortness of breath. OBJECTIVE: Vital Signs: Temperature 98, blood pressure 120/80 O2 saturations 98% on room air. General: This is a chronically ill-appearing, elderly female sitting in bed, in no acute distress. HEENT: Head normocephalic, atraumatic. Heart: S1, S2, tachycardic. Lungs: Diminished breath sounds bilaterally. No crackles. No rales. No wheezes. Abdomen: Positive bowel sounds. Soft, nontender, nondistended. Extremities: No edema. No cyanosis Neurologic: The patient is alert and oriented x3. LABS: White blood cell count 6.2, hemoglobin 9.7, Sodium 141, Potassium 3.7. Chloride 96, BUN 7, creatinine 0.9 ASSESSMENT AND PLAN: 1. Acute on chronic hypoxemic respiratory failure. Multifactorial. We will start the patient on Lasix to aid with diuresis. Continue with bronchodilator therapy and broad spectrum antibiotics. 2. Volume overload. The patient was started on Lasix. 3. Neutropenia. Resolved. 4. Severe thrombocytopenia. The patient is scheduled to receive a transfusion today. 5. Myelodysplastic syndrome. Aware. 6. Urinary tract infection. Continue on IV antibiotic therapy. [facility]
[2017-02-11] MEDS: MORPHINE IV PRN (20:22)
[2017-02-11] MEDS: LEVAQUIN 750 MG/D5W 150 ML IV SCH (20:23)
[2017-02-11] MEDS: DESYREL PO SCH (20:30)
[2017-02-11] MEDS: VANCOMYCIN 1,500 MG in NS 250 ML IV SCH (22:03)
[2017-02-12] MEDS: DUONEB (A & A) INH SCH ×6 (00:48→23:06)
[2017-02-12] MEDS: MORPHINE IV PRN (05:00)
[2017-02-12] MEDS: PRILOSEC PO SCH ×2 (05:01→10:26)
[2017-02-12] MEDS: ZOSYN 3.375 GM/NS 50 ML IV SCH ×4 (05:01→23:26)
[2017-02-12 07:30] LABS: CALCIUM 9.7 mg/dL (8.8-10.2); EOS# 0.02 X1000 (0.0-0.7); HEMOGLOBIN 8.8 g/dL (12.0-16.0); IMM GRAN# 0.12 X1000 (0.0-0.04); IMM GRAN% 6.1 % (0.0-0.5); LYMPH# 0.55 X1000 (1.2-3.4); LYMPH% 27.8 % (20.5-51.1); MANUAL DIFF NEEDED? YES; MCH 32.2 PG (27-31); MCHC 32.6 g/dL (33-37); MCV 98.9 FL (81-99); MONO% 5.1 % (1.7-9.3); PLT 7 X1000 (130-400); POTASSIUM 3.4 mmol/L (3.5-5.1); RBC 2.73 XMIL (4.2-5.4)
[2017-02-12 08:18] LABS: LYMPHS 30 % (21-51); MONO 20 % (1-9)
[2017-02-12] MEDS ORDERED: LASIX IV SCH (09:00)
[2017-02-12] MEDS ORDERED: KLOR-CON PO ONE (09:00)
[2017-02-12] MEDS: MYLICON PO SCH ×3 (10:20→16:49)
[2017-02-12] MEDS: MEVACOR PO SCH (10:20)
[2017-02-12] MEDS: TRICOR PO SCH (10:20)
[2017-02-12] MEDS: GRANIX SUBQ SCH (10:20)
[2017-02-12] MEDS: SINGULAIR PO SCH (10:20)
--- NOTE | 2017-02-12 11:22 | Diag Imaging Result Document ---
PROCEDURE NAME: CHEST-PORTABLE - 02/12/2017 PORTABLE CHEST X-RAY, 02/12/2017: COMPARISON: 02/10/2017. FINDINGS: There is slightly better aeration of the right lung which is otherwise largely collapsed. There is extreme volume loss with deviation of the mediastinum and trachea to the right. There is severe pulmonary vascular congestion. The left lung is grossly clear of infiltrate or significant edema. IMPRESSION: Slight improvement from prior.
[2017-02-12] MEDS ORDERED: TYLENOL PO ONE (13:17)
[2017-02-12] MEDS ORDERED: BENADRYL PO ONE (13:17)
[2017-02-12] MEDS ORDERED: SOLU-MEDROL IV ONE (13:19)
[2017-02-12] MEDS: NS 500 ML IV SCH (13:56)
--- NOTE | 2017-02-12 16:16 | PROGRESS NOTE ---
DATE: 02/12/2017 SUBJECTIVE: The patient is resting comfortably in bed. She states that she feels better. Breathing is a little bit better. She is currently on a Venturi mask. She states that she ate well yesterday evening. OBJECTIVE: Vital Signs: Temperature 97.8 degrees, blood pressure 105/51, heart rate 88, respirations 20, O2 saturations 99% on Venturi mask. Intake 1.2 L, output 700 mL. General: This is a chronically ill-appearing, elderly female, lying in bed, in no acute distress. Head: Normocephalic, atraumatic. Heart: S1, S2. Normal. Regular rate and rhythm. Lungs: Clear to auscultation. Equal air entry. Abdomen: Positive bowel sounds. Soft, nontender, nondistended. Extremities: No edema. No cyanosis. No calf tenderness. Neurologic: The patient is alert and oriented x3. LABORATORY: White blood cell count 1.9, hemoglobin 8.8, hematocrit 27, platelets 7000. Sodium 143, potassium 3.4, chloride 95, CO2 39, BUN 23, creatinine 1, glucose 111. ASSESSMENT AND PLAN: 1. Acute on chronic hypoxemic respiratory failure. We will continue on Lasix, bronchodilator therapy and broad-spectrum antibiotics. Pulmonary is following. 2. Volume overload. Continue on Lasix. 3. Severe thrombocytopenia. We will continue to transfuse the patient at the discretion of the oncologist. 4. Myelodysplastic syndrome. Aware. 5. Urinary tract infection. We will repeat the urine culture today. Continue on IV antibiotic therapy for now. 6. Neutropenia. Continue on current Granix. 7. Gastrointestinal prophylaxis. We will start the patient on IV Protonix.
[2017-02-12] MEDS: LEVAQUIN 750 MG/D5W 150 ML IV SCH (21:51)
[2017-02-12] MEDS: DESYREL PO SCH (21:51)
[2017-02-12] MEDS: VANCOMYCIN 1,500 MG in NS 250 ML IV SCH (21:52)
[2017-02-13] MEDS: NORCO-5 PO PRN (03:14)
[2017-02-13] MEDS: DUONEB (A & A) INH SCH ×7 (03:48→23:13)
[2017-02-13] MEDS: NS 500 ML IV SCH (06:08)
[2017-02-13] MEDS: PROTONIX IV SCH (06:08)
[2017-02-13] MEDS: ZOSYN 3.375 GM/NS 50 ML IV SCH ×2 (06:08→13:55)
[2017-02-13 07:39] LABS: CALCIUM 9.8 mg/dL (8.8-10.2); MAGNESIUM 1.5 mg/dL (1.5-2.7); POTASSIUM 4.6 mmol/L (3.5-5.1)
[2017-02-13 07:44] LABS: EOS# 0.01 X1000 (0.0-0.7); EOS% 0.5 % (0.0-10.0); HEMATOCRIT 27.6 % (37.0-47.0); HEMOGLOBIN 8.7 g/dL (12.0-16.0); IMM GRAN# 0.28 X1000 (0.0-0.04); IMM GRAN% 14.5 % (0.0-0.5); LYMPH# 0.56 X1000 (1.2-3.4); MANUAL DIFF NEEDED? YES; MCH 31.5 PG (27-31); MCHC 31.5 g/dL (33-37); MONO# 0.13 X1000 (0.11-0.59); MONO% 6.7 % (1.7-9.3); NEUT% 48.3 % (42.2-75.2); RBC 2.76 XMIL (4.2-5.4)
[2017-02-13 07:50] LABS: PLT 7 X1000 (130-400)
[2017-02-13 08:02] LABS: BANDS 4 % (0-1); LYMPHS 40 % (21-51); MONO 8 % (1-9)
--- NOTE | 2017-02-13 08:50 | Diag Imaging Result Document ---
PROCEDURE NAME: CHEST-PORTABLE - 02/13/2017 SINGLE FRONTAL RADIOGRAPH OF THE CHEST: COMPARISON: 02/12/2017. FINDINGS: Partial opacification of the right hemithorax with volume loss and rightward mediastinal shift is approximately stable. Pulmonary venous congestion appears to be unchanged. No new consolidations are identified. IMPRESSION: Stable chest.
[2017-02-13] MEDS ORDERED: NS 500 ML IV ONE (08:53)
[2017-02-13] MEDS ORDERED: LASIX IV SCH (09:00)
--- NOTE | 2017-02-13 09:01 | EKG Report ---
Test Performed on : 02/13/2017 08:40:21 AM Test Reason : chest pain Blood Pressure : / mmHG Vent. Rate : 117 BPM Atrial Rate : 117 BPM P-R Int : 200 ms QRS Dur : 124 ms QT Int : 362 ms P-R-T Axes : 039 234 031 degrees QTc Int : 504 ms Sinus tachycardia. with premature atrial complexes. with aberrant conduction. Right superior axis deviation Possible Inferior infarct , age undetermined Cannot rule out Anteroseptal infarct (cited on or before 30-SEP-2016) Abnormal ECG When compared with ECG of 06-FEB-2017 14:41, Right bundle branch block is no longer present Questionable change in initial forces of Septal leads Questionable change in initial forces of Lateral leads Confirmed by Cecilia MELENDEZ, Hadley Flores ([id number]) on 02/13/2017 4:35:30 PM
[2017-02-13] MEDS ORDERED: 1/2 NS 500 ML IV SCH (11:30)
[2017-02-13] MEDS ORDERED: 1/2 NS 1,000 ML IV SCH (11:30)
--- NOTE | 2017-02-13 11:34 | CONSULTATION ---
DATE OF CONSULTATION: 02/13/2017 CONCLUSION: The patient was admitted to the hospital with neutropenia. She is getting chemotherapy and radiation therapy for lung cancer. She now has bilateral pleural effusions. She does not have an infiltrate in the lung itself. Most likely, she has a hemothorax because of her very low platelet count. I am concerned that the patient could have a low immunoglobulin levels as well. RECOMMENDATIONS: For right now, I think it is reasonable to continue with Zosyn and Levaquin. The patient apparently was on vancomycin but is not now because of the creatinine going up and the GFR coming down. The patient is coughing a lot. Her sputum does appear to have blood in it. I have ordered immunoglobulin levels and also a sputum for Gram stain and culture. DISCUSSION: The patient was admitted to the hospital because of a low white count and platelets. She has had a cough for 3 days. The sputum has blood in it. Her chest x-ray shows bilateral pleural effusions and partial atelectasis of the lungs but no definite infiltrate. PRESENT ILLNESS: The patient's CBC shows a white count of 1930, hemoglobin 8.7, and platelet count 7000. Patient's absolute neutrophil count is 930. Creatinine is now up to 1.8. GFR is down to 27. Chest x-ray shows a right hemithorax opacification. There is also some opacification on the left side as well. There is volume loss of the lungs. PAST MEDICAL HISTORY/REVIEW OF SYSTEMS: Eyes and Ears: Patient denies difficulty hearing or seeing. Neck: No stiffness. Respiratory: Patient is coughing and coughs up some blood. She does feel short of breath even at rest. Cardiac: No chest pain or palpitations. GI: The patient does not have an appetite. She also earlier had diarrhea but this has cleared. : No dysuria or flank pain. Bones, Joints, and Muscles: No joint swelling or myalgias. Endocrine: No history of diabetes or thyroid disease. Neurologic: The patient is generally weak but no focal motor or sensory loss. She has not had seizures. Integument: No rashes. The remainder of the patient's review of systems was completed and was negative. [employer] HISTORY: She is a 3, para 2, AB 1. She has had a hysterectomy. PREVIOUS HOSPITALIZATIONS AND OPERATIONS: She has had labor and deliveries, a miscarriage, and a hysterectomy. She has had a total hip arthroplasty. She had surgery for a fractured neck. She is being treated for lung cancer. She was considered a nonoperative candidate. She is getting chemotherapy and radiation therapy. MEDICAL DISEASES: Positive for lung cancer, COPD. 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 Hyperlipidemia and gastroesophageal reflux disease. INFECTIOUS DISEASE HISTORY: Positive for recurrent pneumonia and UTI. FAMILY HISTORY: Positive for myocardial infarction. SOCIAL HISTORY: Patient lives in [place]. She lives alone. She does not drink alcoholic beverages or abuse drugs or smoke cigarettes. She does not have any pets. ALLERGIES: She has no known allergies. HOME MEDICATIONS: Consist of the following: Protonix, Prilosec, Singulair, Mevacor, and TriCor. PHYSICAL EXAMINATION: Vital Signs: Temperature is 98.1 degrees, pulse 100, respirations 18, blood pressure 114/36. General: This is an ill-appearing, elderly female who coughed continually during the exam. Head, Eyes, Ears, Nose, and Throat: She can hear my spoken words and see near objects. No lesions were noted in the mouth. Neck: No meningismus. Thorax: No increased AP diameter of the lungs. Cardiovascular: The heart is on the right side. Heart tones are regular. I did not hear a murmur. Lungs: Clear to auscultation. Abdomen: Soft and nontender. Neurologic: Patient is awake. She can move her extremities but she is weak. There is no tremor. I was unable to formally test her memory today. Integument: No rash. Thank you for the consult.
[2017-02-13] MEDS: GRANIX SUBQ SCH (12:04)
[2017-02-13] MEDS: TRICOR PO SCH (12:04)
[2017-02-13] MEDS: MYLICON PO SCH ×3 (12:04→17:05)
[2017-02-13] MEDS: MEVACOR PO SCH (12:04)
[2017-02-13] MEDS: SINGULAIR PO SCH (12:04)
[2017-02-13] MEDS ORDERED: 1/2 NS 500 ML IV ONE (12:45)
--- NOTE | 2017-02-13 14:22 | PROGRESS NOTE ---
DATE: 02/13/2017 SUBJECTIVE: Patient reports some chest pain this morning that lasted approximately 1-2 minutes and then goes away. Denies any fever, chills. OBJECTIVE: Vital Signs: Temperature 98.1 degrees, heart rate 100, respiratory rate 18, blood pressure 114/36. O2 saturation 91% on nasal cannula. General Examination: This is a chronically ill-looking and frail, 76-year-old female lying in bed, in no acute distress. HEENT: Head is normocephalic, atraumatic. Anicteric sclerae and pale conjunctivae. Mucous membranes dry. Neck: Supple. No JVD noted. No carotid bruits. No lymphadenopathy. No thyromegaly. Cardiovascular Exam: S1-S2 heard. No murmurs, gallops, or rubs. Regular rate and rhythm. Lungs: Exam clear bilaterally to auscultation. No work of breathing or using accessory muscles. Abdomen: Soft, nontender to palpation. Bowel sounds present. No organomegaly. Extremities: No clubbing, cyanosis, or edema. Peripheral pulses present in both legs. Neurological: Patient is alert and oriented x3. Able to move 4 extremities. Cranial nerves 2-12 grossly normal. LABORATORY DATA: White cell count 1.93, hemoglobin 8.7, hematocrit 27.6, platelet 7000. BMP shows creatinine 1.8 and troponin 0.018. ASSESSMENT AND PLAN: 1. Acute on chronic hypoxemic respiratory failure. The patient is still requiring high amounts of oxygen by Venturi mask and now we are trying oxygen by nasal cannula at 5- 6 L/minute. Will continue with the same management. Pulmonary is following this patient as well. 2. Severe thrombocytopenia. Of course not related to myelodysplastic syndrome. Hematology is following this patient, Dr. García. We will leave this decision of transfused platelets to them. It important to remark that during the last 4-5 days, platelets despite transfusing 2 units of platelets, are still in the range of 6-8000. There is no sign of bleeding, though. 3. Urinary tract infection. Patient is on IV antibiotics. Right now she is on Levaquin and Zosyn. 4. Acute kidney injury. I think it will be most probably related to vancomycin. We have the stopped this medication. We have consulted Dr. Mcgee from infectious disease. We will follow recommendations. 5. Neutropenia. Patient receiving Granix as per Hematology Oncology. MTDD
[2017-02-13] MEDS ORDERED: TYLENOL PO ONE (16:03)
[2017-02-13] MEDS ORDERED: SOLU-MEDROL IV ONE (16:04)
[2017-02-13] MEDS ORDERED: BENADRYL PO ONE (16:04)
--- NOTE | 2017-02-13 16:38 | CONSULTATION ---
DATE OF CONSULTATION: 02/13/2017 REASON FOR CONSULTATION: Cardiology consulted for abnormal electrocardiogram. HISTORY OF PRESENT ILLNESS: The patient is admitted with severe thrombocytopenia. Has undergone treatment for malignancy in her lung with radiation and chemotherapy. Platelet count was 6,000 and she had 10 units of platelets transfused. From a cardiac standpoint, she has undergone lung surgery in 2009 in [place] for her malignancy. However, surgery could not be performed as there was infiltration around the mediastinum and medical management or chemotherapy and radiation was recommended to the patient. Patient has dextrocardia as well. From a cardiac standpoint, she complains of no chest pain. She has been weak during radiation therapy and chemotherapy. She also has had cough with expectorations. She reports a fever of 102 when she came in. REVIEW OF SYSTEMS: GI: There is no history of nausea, vomiting, or diarrhea. There is no history of hematemesis or melena. Central nervous system: No focal weakness to suggest a CVA or TIA. Genitourinary: There is no dysuria or hematuria. PAST MEDICAL HISTORY: 1. Non-small cell carcinoma. 2. COPD. 3. Chronic anemia. 4. Dextrocardia. 5. Recurrent pneumonia. 6. Myelodysplastic syndrome. 7. Osteoarthritis. PAST SURGICAL HISTORY: 1. Thoracotomy. 2. Rasta fundoplication. 3. Hysterectomy. 4. Appendectomy. 5. Hemorrhoidectomy. 6. Left hand surgery. DIAGNOSTIC STUDIES: Her last stress test was unremarkable. Echocardiogram was ordered today. Her last echocardiogram revealed pericardial effusion; that was on 10/03/2016, which revealed an ejection fraction of 60 to 65%. There was tricuspid regurgitation. CURRENT MEDICATIONS: Include nebulizers, fenofibrate, Lasix 40 IV b.i.d., levofloxacin, lovastatin, montelukast, Protonix, Zosyn, simethicone, trazodone. PHYSICAL EXAMINATION: Vital signs: Blood pressure was 114/36. Cardiovascular System: Jugular venous pressure was normal. First and second heart sounds were heard. She had a systolic murmur. She has dextrocardia. Respiratory System: Scattered wheeze. Abdomen: Soft, nontender. There was no guarding or rigidity. Bowel sounds were heard. Central nervous system: Alert. Was moving extremities. Detailed examination of the central nervous system not performed. There was mild pedal edema. HEENT: Atraumatic. Pupils were equal and reacting to light. LABORATORY: Sodium 145, potassium 4.6, BUN 35, creatinine 1.8. When she came in her BUN was 17, creatinine 0.9. Hematology: Hemoglobin 8.8, hematocrit 27, platelet count of 6,000. CT scan of her chest was done. There was chronic rib fracture on the right side. No pulmonary embolism. There was stable consolidation in the right upper lobe. ASSESSMENT AND PLAN: Mr. Katie Godinez is a 76-year-old lady who has dextrocardia, isolated neoplasm of the lung, is undergoing radiation and chemotherapy, is admitted with severe thrombocytopenia. She was given Lasix and IV antibiotics and her renal function has worsened. Would recommend discontinuing the IV Lasix for the present and follow her BMP. She is probably intravascularly dry to account for worsening renal function. From a cardiac standpoint, I have not made any other changes or recommendations. Electrocardiogram revealed right bundle branch block. Normal sinus rhythm. Cardiac enzymes were otherwise unremarkable. Given her worsening renal function, I give her gentle hydration with a liter of half normal saline 75 mL an hour. We will check a BMP again.
--- NOTE | 2017-02-13 19:22 | ECHO REPORT ---
ORDER DATE: 02/13/2017 INTERPRETING PHYSICIAN: Dr. Joseph REQUESTING PHYSICIAN: CLINICAL INDICATIONS: A 76-year-old female with tachycardia, dyspnea, arm pain, lung cancer. M-MODE MEASUREMENTS: Right ventricle: 3.3 cm. Left ventricle end diastole: 2.7 cm. Left ventricle end systole: 1.8 cm. Posterior wall: 1.4 cm. Interventricular septum: 1.4 cm. Left atrium: 4.1 cm. Aortic root: 3.8 cm. SUMMARY OF 2-DIMENSIONAL IMAGING: This study is really very limited. The patient has extremely poor apical and parasternal windows. The global left ventricular systolic function is probably normal. Ejection fraction may be anywhere from 70-75%. The ventricle appears to be hyperdynamic. The mitral annulus shows calcification. Color flow mapping of the mitral valve suggests there is a mild degree of regurgitation. The patient is in sinus tachycardia with PACs. Diastolic function cannot be evaluated in this case. The tricuspid valve shows a moderate degree of regurgitation. Pulmonary pressure grossly estimated at 57 mmHg. The pulmonic valve was suboptimally visualized. There is a mild to moderate degree of regurgitation. The aortic valve shows calcification of the cusps and it appears to have restriction to its opening. The severity of the aortic stenosis cannot be accurately estimated in this study. It may be anywhere from mild to more than moderate. There is no definite indication of pericardial effusion or masses. However, again, this study is very limited. Clinical correlation is strongly recommended.
[2017-02-13 20:49] LABS: URINE MICRO REVIEW NEEDED? NO; URINE SOURCE VOIDED
[2017-02-13 20:53] LABS: BILIRUBIN URINE NEGATIVE (NEGATIVE); BLOOD URINE NEGATIVE (NEGATIVE); COLOR YELLOW; GLUCOSE URINE NEGATIVE (NEGATIVE); LEUKOCYTES URINE NEGATIVE (NEGATIVE); NITRITE URINE NEGATIVE (NEGATIVE); PROTEIN URINE TRACE mg/dL (NEGATIVE); SP GRAVITY URINE 1.023; TURBIDITY URINE CLEAR (CLEAR); UROBILINOGEN URINE NORMAL (NORMAL)
[2017-02-13 20:54] LABS: UR EPITHELIAL CELLS <10 /HPF (<10); URINE BACTERIA NEGATIVE /HPF; URINE RBC <10 /HPF (<10); URINE WBC <10 /HPF (<10)
[2017-02-13 21:07] LABS: UR CREAT RANDOM 106.4 mg/dL (11-20); UR PROT RANDOM 38.6 mg/dL
--- NOTE | 2017-02-13 22:07 | CONSULTATION ---
DATE OF CONSULTATION: 02/13/2017 REASON FOR ADMISSION: Hemoptysis, shortness of breath, non-small cell lung cancer with recurrent pneumonia. REASON FOR CONSULTATION: Acute kidney injury. CONSULTING PHYSICIAN: Dr. Arriaga. HISTORY OF PRESENT ILLNESS: This is a 76-year-old female with a history of non- small cell lung cancer with recurrent pneumonia followed by Dr. García and Dr. Hernadez as an outpatient. She has been on chemotherapy as an outpatient. She has been having diarrhea, shortness of breath and hemoptysis. She came into the hospital with a fever of 102.3. Was noted to be pancytopenic with thrombocytopenia, neutropenia. She had chest x-ray with increased density to the mid lower right lung with pleural thickening or effusion. She has been treated with vancomycin , Zosyn and Levaquin. Her creatinine initially was 0.9. It is risen over the course of the last 3 days and now is at 1.8. Her urine output appeared to have decreased. She was given some Lasix. Urine output was increased as per report but has not been quantified in the charting. Patient still has normal saline going at 75 now. We have been asked to see her secondary to her acute kidney injury. Her vancomycin has been stopped. Today she states she has no new shortness of breath or chest pain aside from previous. She remains on a Ventimask for oxygenation requirements. States her diarrhea has stopped. States urine output is continued excellent. She has been able to eat without nausea or vomiting. PAST MEDICAL HISTORY: Non-small cell lung cancer, COPD, chronic anemia, hyperlipidemia, dextrocardia, recurrent pneumonia, myelodysplastic syndrome, osteoarthritis. PAST SURGICAL HISTORY: Thoracotomy, total hip arthroplasty, Rasta fundoplication, hysterectomy, appendectomy, hemorrhoidectomy, left hand surgery. ALLERGIES: No known drug allergies. CURRENT MEDICATIONS: [place], DuoNeb, TriCor, Levaquin, Mevacor, Singulair, Protonix, Zosyn, normal saline, Granix, Desyrel, Tylenol, Benadryl, Lasix. FAMILY HISTORY: Coronary artery disease, cancer, diabetes. SOCIAL HISTORY: She is , she lives alone. She has attentive family. She quit smoking nearly 30 years ago. No ETOH or illicit drug use. She is currently on chemotherapy with Dr. García. REVIEW OF SYSTEMS: Negative aside from the above noted in the HPI. PHYSICAL EXAM: Vital Signs: Temperature 98.6 degrees, pulse 106, respiratory rate 20, blood pressure 105/62, intake 2.1 L, output has not been measured. She is voiding to bedside commode. General: This is an elderly chronically ill-appearing female resting in bed. She is awake and alert and able to give me an appropriate history. HEENT: Normocephalic, atraumatic. Oral mucosa is moist. She has a red flare noted to the left cheek. Conjunctivae are pink. VENICE, arcus senilis noted. Neck: Supple. Trachea midline. She has some JVD noted lying flat. Cardiovascular: Reveals a regular rate and rhythm. [place] mainly to the right. She has a systolic murmur noted. Lungs: She has decreased breath sounds bilaterally. She has rhonchi but no overt wheezes. She has no increased work of breathing and remains on a Ventimask. Abdomen: Soft with positive bowel sounds. : She is voiding. Extremities: She has perhaps trace pretibial edema. No clubbing or cyanosis. Her extremities are warm. She does have dependent edema noted to the thighs and hips. She lays primarily on the right side secondary to left hip arthroplasty and her edema is more pronounced to the right. She is moving all extremities. Integumentary: Her skin is pale, warm and dry. She does have some areas of ecchymoses noted. Neuro: Grossly nonfocal. LAB DATA: WBC 1.9, hemoglobin 8.7, hematocrit 27.6 and platelet count of 7000. Sodium 145, potassium 4.6, chloride 96, CO2 39, BUN 35, creatinine 1.8, calcium 9.8, magnesium 1.5. She has an INR of 1.0 and PTT 30.5. She had a random vancomycin on the of 9.3, her urine on the was 1+ protein, trace ketones, moderate blood, moderate leukocytes, too numerous to count white blood cells. IMAGING: Chest x-ray today with partial opacification the right hemothorax with volume loss some rightward mediastinal shift that is approximately stable, pulmonary venous congestion appears unchanged with no new consolidations. Her chest was identified stable. ASSESSMENT AND PLAN: 1. Acute kidney injury likely secondary to nephrotoxic medications. Her vancomycin has been held. Her Levaquin and Zosyn we have changed to renal appropriate dose for the time being. We will order urine electrolytes, eosinophils and a renal ultrasound to further classify her acute kidney injury. She has no indications for dialysis at this time. We will check labs in the morning. Continue IV fluids as currently ordered until we have received urine studies back. 2. Electrolytes acceptable. 3. Acid-base balance. Her CO2 was 39 likely both respiratory as well as metabolic. She has received Lasix and does have lung issues. 4. Anemia, thrombocytopenia, neutropenia followed by primary and oncology. Patient has received multiple units of platelets. Thank you for the consultation. Data reviewed, discussed with aVlerie Price on 02/13/17. I agree with the above assessment and plan of care. rg Dictated by SEYMOUR Albright for Aman Jean MD [facility]
[2017-02-13] MEDS: ZOSYN 2.25 GM/NS 50 ML IV SCH (22:43)
[2017-02-13] MEDS: DESYREL PO SCH (22:44)
[2017-02-14] MEDS: DUONEB (A & A) INH SCH ×6 (03:40→23:32)
[2017-02-14] MEDS: ZOSYN 2.25 GM/NS 50 ML IV SCH ×4 (04:13→20:33)
[2017-02-14] MEDS: PROTONIX IV SCH (06:21)
[2017-02-14 07:18] LABS: MAGNESIUM 1.5 mg/dL (1.5-2.7); POTASSIUM 3.9 mmol/L (3.5-5.1)
[2017-02-14 08:18] LABS: BASO% 1.7 % (0.0-0.8); EOS# 0.01 X1000 (0.0-0.7); EOS% 0.4 % (0.0-10.0); HEMOGLOBIN 7.7 g/dL (12.0-16.0); IMM GRAN# 0.24 X1000 (0.0-0.04); IMM GRAN% 10.1 % (0.0-0.5); LYMPH% 25.3 % (20.5-51.1); MANUAL DIFF NEEDED? YES; MCH 30.9 PG (27-31); MCHC 30.8 g/dL (33-37); MCV 100.4 FL (81-99); MONO% 4.2 % (1.7-9.3); NEUT% 58.3 % (42.2-75.2); PLT 9 X1000 (130-400); RBC 2.49 XMIL (4.2-5.4)
[2017-02-14 08:29] LABS: BANDS 12 % (0-1); EOS 4 % (1-10); HYPOCHROM 1+; LYMPHS 40 % (21-51)
[2017-02-14] MEDS: TRICOR PO SCH (08:56)
[2017-02-14] MEDS: GRANIX SUBQ SCH (08:56)
[2017-02-14] MEDS: MYLICON PO SCH ×3 (08:56→16:26)
[2017-02-14] MEDS: SINGULAIR PO SCH (08:56)
[2017-02-14] MEDS: MEVACOR PO SCH (08:56)
--- NOTE | 2017-02-14 09:28 | Diag Imaging Result Document ---
PROCEDURE NAME: US RENAL 2 (RETROPER) COMPLETE - 02/14/2017 RENAL ULTRASOUND: FINDINGS: The right kidney is 12.5 x 5.1 x 5.2 cm. The left is 10.7 x 4.6 x 5.9 cm. There is no evidence of hydronephrosis. There is a 9-mm cyst in the lower pole of the right kidney. The spleen is enlarged measuring over 15 cm in 2 planes. This is larger than on the previous study of 01/09/2017. The bladder is not distended. There are no abnormal fluid collections. IMPRESSION: Worsened splenomegaly. No evidence of obstructive uropathy.
[2017-02-14] MEDS ORDERED: MIRALAX PO ONE (12:39)
[2017-02-14] MEDS ORDERED: MISC. PHARMACY COMMUNICATION SCH (13:30)
--- NOTE | 2017-02-14 13:37 | PROGRESS NOTE ---
DATE: 02/14/2017 SUBJECTIVE: Patient currently resting in bed. She has no complaints this morning. OBJECTIVE: Vital Signs: Temperature 97.4 degrees, pulse 94, respiratory rate 20, blood pressure 114/40, intake 460 mL, output 950 mL. General: Elderly lady resting in bed. No acute distress. HEENT: Normocephalic, atraumatic. Oral mucosa moist. Neck: Supple. Trachea midline. No JVD. Cardiovascular: Regular rate and rhythm. No murmur or gallop. greater to the right. Pulmonary: No increased work of breathing, remains on a Ventimask. Abdomen: Soft. Positive bowel sounds. : Continues to void. Extremities: Trace pretibial edema. No clubbing, cyanosis. Is moving all extremities. Integumentary: Skin is warm and dry without rash or lesion. Her edema appears improved today. Neuro: Grossly nonfocal. LAB DATA: WBC of 2.3, hemoglobin 7.7, hematocrit 25.0 and platelet count of 9000. Sodium 145, potassium 3.9, CO2 39, BUN 38, creatinine 1.7, calcium 9.0, magnesium 1.5. Renal ultrasound. Kidney size right 12.5 cm, left 10.7 cm. No hydronephrosis. ASSESSMENT AND PLAN: 1. Acute kidney injury. She does have a low FENa score of 0.4 however her urine output has been excellent by report and patient is tolerating p.o. well. Medications, antibiotics have been adjusted accordingly to her renal function. It appears that she has stabilized overnight. Continue to monitor. Nothing else to add today. 2. Electrolytes, acid-base balance. CO2 remains at 39, no changes, continue to monitor. 3. Anemia, thrombocytopenia, neutropenia followed by primary oncology. Seen, data reviewed, discussed with Valerie Price on 02/14/17. I agree with the above assessment and plan of care. rg Dictated by SEYMOUR Albright for Aman Jean MD [facility]
[2017-02-14] MEDS ORDERED: NS 500 ML ONE (14:32)
--- NOTE | 2017-02-14 15:37 | PROGRESS NOTE ---
DATE: 02/14/2017 SUBJECTIVE: Patient reports feeling fine with mild shortness of breath. Denies any fever or chills. Denies any signs of bleeding. OBJECTIVE: Vital Signs: Temperature 98.3 degrees, heart rate 74, respiratory rate 20, blood pressure 102/39, O2 saturation 96% on Venturi mask at 40%. General Examination: This is a chronically ill appearing and frail 76-year-old female lying in bed, in no acute distress. HEENT: Head is normocephalic, atraumatic. Anicteric sclerae and pale conjunctivae. Mucous membranes moist. Neck: Supple. No JVD noted. No carotid bruits. No lymphadenopathy. No thyromegaly. Cardiovascular: S1, S2 heard. No murmurs, gallops, or rubs. Regular rate and rhythm. Respiratory: Clear bilaterally to auscultation with some coarse breath sounds present in both bases. Patient is not using any accessory muscles or having work of breathing. Abdomen: Soft, nontender to palpation. Bowel sounds present. No organomegaly. Extremities: No clubbing, cyanosis, or edema. Peripheral pulses present in both legs. Neurological: Patient is alert and oriented x3. Able to move 4 extremities. Cranial nerves 2-12 grossly normal. LABORATORY DATA: White cell count 2.37, hemoglobin 7.7, hematocrit 25, platelets 9000. BMP shows creatinine 1.7 and BUN 38. ASSESSMENT AND PLAN: 1. Acute on chronic respiratory failure. Patient is still requiring high amounts of oxygen by Venturi mask. Unfortunately she has not moving forward. Right now she is on Venturi mask and sometimes 5-6 L of oxygen by nasal cannula, but she is still desaturating sometimes. At this time, we are going to check a computed tomography of the chest without contrast. We will see what Pulmonary has to say. 2. Severe thrombocytopenia secondary to mild dysplastic syndrome. Unfortunately, those numbers have been the same for the last 5-6 days and even though she is receiving platelets, these numbers are not changing at all. At this time fortunately for the patient, there are no signs of bleeding, so at this time, we do not have anymore platelets here in the hospital. They will be coming in from [place] during the next 48-84 hours. At this point, we are going to continue checking complete blood count daily. 3. Urinary tract infection. Patient is on Levaquin and Zosyn. The urine culture shows mixed deana. Blood cultures are negative. So the patient is not complaining of any cough. So I think at this point, we are going to continue with antibiotics and Lv Mcgee will stop in. 4. Acute kidney injury. This is multifactorial. Dr. Jean has been consulted. We will see what he has to say. 5. Neutropenia. Patient does have any neutropenia anymore. We will continue receiving Granix as per Hematology/Oncology.
--- NOTE | 2017-02-14 17:07 | PROGRESS NOTE ---
DATE: 02/14/2017 PRESENT ILLNESS: The patient currently is recovering from chemotherapy. She is receiving chemotherapy and radiation therapy for lung cancer. She has pleural effusions, but no definite evidence of a pneumonia at this time. MEDICATIONS: The patient is on a combination of Zosyn and Levaquin. PHYSICAL EXAMINATION: Vital Signs: Temperature is 98.5, pulse 94, respirations 18, blood pressure 110/35. General: This is a somewhat ill-appearing, elderly female. She is in no acute distress. Lungs: Clear to auscultation. Cardiovascular: Regular heart rate. Abdomen: Soft and nontender. Neurologic: Patient is awake. She can move her extremities. There is no tremor. LAB AND X-RAY: There is no new x-ray. The lab for today shows a CBC with a white count of 2370, hemoglobin 7.7 and platelet count 9000. Creatinine is 1.7. The GFR is 29. ASSESSMENT AND PLAN: The patient is neutropenic. She is recovering from chemotherapy. She also developed acute renal failure. Whether she has a definite infection at this time is unknown. My plan is to discontinue Levaquin and treat with Zosyn as a single agent. COMORBIDITY: She is elderly. She has lung cancer. She is receiving chemotherapy and radiation therapy. Patient is neutropenic although her white count is recovering.
[2017-02-14] MEDS: DESYREL PO SCH (20:33)
[2017-02-14] MEDS ORDERED: LEVAQUIN 750 MG/D5W 150 ML IV SCH (22:00)
[2017-02-15] MEDS: ZOSYN 2.25 GM/NS 50 ML IV SCH ×4 (02:11→19:52)
[2017-02-15] MEDS: DUONEB (A & A) INH SCH ×6 (03:00→23:52)
[2017-02-15 07:14] LABS: CALCIUM 9.1 mg/dL (8.8-10.2); POTASSIUM 3.5 mmol/L (3.5-5.1)
--- NOTE | 2017-02-15 07:58 | Diag Imaging Result Document ---
PROCEDURE NAME: CT THORAX W/O CONTRAST - 02/14/2017 CT CHEST WITHOUT CONTRAST: COMPARISON: 02/06/2017. FINDINGS: There is severe pulmonary emphysema. There is volume loss on the right related to prior partial pneumonectomy. There is a moderate amount of pleural fluid on the right that has increased in volume since the previous study. Airspace disease on the right appears to have increased somewhat. In the right middle lobe and right lower lobe, there is more atelectasis at the right lung base as compared to the previous study. On the left, there are a few new small pleural-based nodular densities at the anterior aspect of the chest overlying the lower left upper lobe. They can be seen on image 57 of series 3. Statistically, these are likely inflammatory nodules. Vaguely mass-like density at the right lung base blends with atelectasis and is probably unchanged. There is a small nodular density left lower lobe on image 49 of series 3 that is stable and may represent nodule or scarring. There is stable marked leftward mediastinal shift related to postsurgical volume loss. Shotty small mediastinal lymph nodes may be marginally more prominent and are probably reactive. Cardiac silhouette is stable, otherwise. Hiatal hernia is stable. IMPRESSION: 1. Suggestion of some worsening of airspace opacities in the right lower lung zone. 2. Increase in pleural fluid on the right. 3. Development of fine nodularity that is pleural-based anterior to the left upper lobe that is probably inflammatory. 4. Questionable increase in prominence of the shotty small lymph nodes in the mediastinum that are probably reactive. 5. Otherwise, the chest is essentially stable.
--- NOTE | 2017-02-15 07:59 | Diag Imaging Result Document ---
PROCEDURE NAME: CHEST-1 VIEW - 02/15/2017 AP PORTABLE CHEST: TIME: 0500 hours. FINDINGS: There is continued volume loss and near complete opacification of the right hemithorax. There is worsened interstitial pulmonary edema on the left. There is also a small pneumothorax laterally and inferiorly on the left. This was not previously present on the chest radiograph of 02/13/[address] of 02/14/2017. IMPRESSION: New left pneumothorax. Worsening left pulmonary edema. The acute findings were called to [address] [place] [address] at 0708 hours.
--- NOTE | 2017-02-15 09:14 | Diag Imaging Result Document ---
PROCEDURE NAME: CHEST-PORTABLE - 02/15/2017 AP PORTABLE CHEST AT 0835 HOURS: COMPARISON: Compared to the previous study at 0500 hours. FINDINGS: The left pneumothorax is not as well demonstrated, although there is still visible lucency laterally and inferiorly. There continues to be volume loss and near complete opacification of the right lung. There is diffuse pulmonary edema particularly in the lower lung field on the left. IMPRESSION: Apparent left pneumothorax. This has been previously reported. Essentially stable since 0500 hours.
[2017-02-15 09:16] LABS: PLT 8 X1000 (130-400)
[2017-02-15 09:17] LABS: BASO% 1.5 % (0.0-0.8); EOS# 0.02 X1000 (0.0-0.7); EOS% 0.6 % (0.0-10.0); HEMATOCRIT 27.3 % (37.0-47.0); HEMOGLOBIN 8.7 g/dL (12.0-16.0); IMM GRAN% 2.9 % (0.0-0.5); LYMPH# 0.76 X1000 (1.2-3.4); LYMPH% 22.4 % (20.5-51.1); MANUAL DIFF NEEDED? YES; MCH 31.4 PG (27-31); MCHC 31.9 g/dL (33-37); MCV 98.6 FL (81-99); MONO# 0.17 X1000 (0.11-0.59); MPV 11.9 FL (7.4-10.4); NEUT% 67.6 % (42.2-75.2); RBC 2.77 XMIL (4.2-5.4)
[2017-02-15 09:57] LABS: BANDS 6 % (0-1); LYMPHS 30 % (21-51); MONO 8 % (1-9)
[2017-02-15] MEDS: MYLICON PO SCH ×3 (10:46→16:02)
[2017-02-15] MEDS: GRANIX SUBQ SCH (10:46)
[2017-02-15] MEDS: NON-FORMULARY MED PO SCH ×2 (10:46→21:15)
[2017-02-15] MEDS: SINGULAIR PO SCH (10:47)
[2017-02-15] MEDS: MEVACOR PO SCH (10:47)
[2017-02-15] MEDS: PROTONIX IV SCH (10:47)
[2017-02-15] MEDS: TRICOR PO SCH (10:47)
--- NOTE | 2017-02-15 13:41 | PROGRESS NOTE ---
DATE: 02/15/2017 SUBJECTIVE: Patient currently resting in bed. She has had a little bit worsening breathing today. OBJECTIVE: Vital Signs: Temperature 97.8 degrees, pulse 74, respiratory rate 20, blood pressure 123/29. Intake 1.5 L. Output 1.4 L plus voids not measured. PHYSICAL EXAMINATION: General: Elderly female, resting in bed. She is awake and alert. HEENT: Normocephalic atraumatic. She has a Ventimask on. Neck: Supple. Trachea midline. No JVD. Cardiovascular: Regular rate and rhythm without murmur or gallop. Heart sounds greater on the right. Pulmonary: On a Ventimask. She has significantly decreased breath sounds to the left. Abdomen: Soft. Positive bowel sounds. : Not inspected. She is voiding. Extremities: No clubbing, cyanosis. She has trace edema. She has a dependent edema noted. Integumentary: Skin is warm and dry. Pale. LAB DATA: Sodium 147, potassium 3.5, CO2 37, BUN 35, creatinine 1.6. Chest x- ray with left pneumothorax. Ultrasound right kidney 12.5 cm, left kidney 10.7 cm. ASSESSMENT AND PLAN: 1. Acute kidney injury. Her creatinine has continued to slowly improve over the last several days. She has adequate intake and output. We have nothing else to add at this time. We will continue to monitor. 2. Electrolytes, acid-base balance. These have been stable. 3. Anemia, thrombocytopenia, neutropenia followed by primary and Oncology. 4. Left pneumothorax followed by primary and Pulmonology. Seen, data reviewed, discussed with Valerie Price on 02/15/17. I agree with the above assessment and plan of care. rg Dictated by SEYMOUR Albright for Aman Jean MD [facility]
--- NOTE | 2017-02-15 14:00 | PROGRESS NOTE ---
DATE: 02/15/2017 SUBJECTIVE: Patient reports feeling fine with mild shortness of breath, similar when compared with yesterday. Denies any fever or chills. Denies any sign of bleeding. No vomiting blood or blood in the urine or in the stools. OBJECTIVE: Vital signs: Temperature 98.4, heart rate 192, respiratory rate 18 , blood pressure 108/32, O2 saturation 94% on venturi mask. General examination: This is a chronically ill- appearing and frail 76-year-old female lying in bed in no acute distress. HEENT: Head is normocephalic and atraumatic. Anicteric sclerae. Pale conjunctivae. Mucous membranes are moist. Neck: Supple. No JVD noted. No carotid bruit. No lymphadenopathy. No thyromegaly. Cardiovascular exam: S1, S2 heard. No murmurs, gallops, or rubs. Regular rate and rhythm. Respiratory exam: Decreased breath sounds globally with some coarse breath sounds in both bases. Patient is not using any accessory muscles or having work of breathing. Abdomen : Soft, nontender to palpation. Bowel sounds present. No organomegaly. Extremities: No clubbing, cyanosis, or edema. Peripheral pulses present in both legs. Neurological exam: Patient alert and oriented x3. Moves four extremities. LABORATORY DATA: White cell count 3.40, hemoglobin 8.7, hematocrit 27.3, platelets 8. BMP unremarkable except creatinine 1.6 and BUN 35. ASSESSMENT AND PLAN: 1. Acute and chronic respiratory failure. Patient is still requiring a high amount of oxygen by venturi mask. Now she is on 6 liters on nasal cannula. She desaturated to 80s, low 80s. Today, the x-ray done at 6:00 a.m. and also 8:40 show left-sided pneumothorax , and Dr. Hernadez from Pulmonary has been notified about this finding, and even though we need to put a chest tube, the fact that this patient has severe thrombocytopenia will preclude us to perform any procedures on this patient. Will monitor this patient closely. 2. Severe thrombocytopenia secondary to myelodysplastic syndrome. Numbers are still the same, and fortunately for this patient, she is not bleeding. Right now, we are waiting for platelets that are coming from [place] because this patient has many antibodies that she has developed because of many transfusions before. 3. Urinary tract infection. Patient is on Levaquin and Zosyn. Will continue with the same medications. Blood cultures are so far negative. 4. Acute kidney injury, most likely related to vancomycin usage. Dr. Jean from Nephrology has been consulted. Will follow recommendations. 5. Neutropenia. Patient is not developing any fever. Patient is being followed by Hematology/Oncology, and she is being given Granix. Overall, this patient is not doing good. Because of this myelodysplastic syndrome, she has developed severe thrombocytopenia that is not improving at all since admission even though multiple transfusions. Also, she has developed pneumothorax and acute respiratory failure with high amount of oxygen provided to this patient. On top of that, she has developed left pneumothorax today. Will see what Dr. Hernadez from Pulmonary has to say. Will follow recommendations. [facility]
--- NOTE | 2017-02-15 14:42 | PALLIATIVE CARE CONSULTATION ---
DATE: 02/15/2017 SUBJECTIVE: Ms. Godinez is sitting on the bedside eating lunch. She continues to complain of shortness of breath. She denies pain. OBJECTIVE: General: This is an elderly female, who is sitting up on the side of the bed. She does not appear to be in any acute distress. HEENT: Atraumatic, normocephalic. Cardiovascular: Regular rate and rhythm. Pulmonary: Lung sounds are diminished. Respirations are nonlabored. Abdomen: Soft. Extremities: Pulses are palpable. ASSESSMENT AND PLAN: Ms. Godinez continues to complain of shortness of breath. She states this is worse when sitting up and is relieved when lying down. She denies pain at this time. Current palliative performance scale is 40%. She is a DNR level 2. The palliative care team will continue to follow as needed. Dictated by SEYMOUR Singer for Baljinder Hernadez MD
--- NOTE | 2017-02-15 16:59 | PROGRESS NOTE ---
DATE: 02/15/2017 PRESENT ILLNESS: The patient is receiving chemotherapy and radiation therapy for lung cancer. On her latest chest x-ray patient had a pneumothorax and pulmonary edema. There could be pneumonia intermixed with the pulmonary edema. MEDICATIONS: The patient currently is receiving Zosyn as a single antibiotic. PHYSICAL EXAMINATION: Vital Signs: Temperature is 98.8 degrees, pulse 87, respirations 19, blood pressure 112/32. General: This is an ill-appearing, elderly female. She is in no acute distress but she is lethargic and weak and is complaining of being short of breath. Lungs: Clear to auscultation. Cardiovascular: Heart rate is regular. Abdomen: Soft and nontender. Extremities: Patient has a PICC in her arm. The site is not swollen or red. LAB AND X-RAY: Chest x-ray shows a left pneumothorax and worsening pulmonary edema. Laboratory studies show a CBC with a white count of 3,400, hemoglobin 8.7, and platelet count 8000. Sputum is growing a normal deana. Blood cultures are sterile. ASSESSMENT AND PLAN: I think it is possible the patient does have a pulmonary infection. For that reason, I plan to continue her antibiotics. COMORBIDITIES: Include lung cancer, chemotherapy and radiation therapy. The patient also has neutropenia.
[2017-02-15] MEDS ORDERED: LASIX IV STA (20:41)
[2017-02-15] MEDS: DESYREL PO SCH (21:15)
[2017-02-16] MEDS: ZOSYN 2.25 GM/NS 50 ML IV SCH ×4 (02:08→22:36)
[2017-02-16] MEDS: DUONEB (A & A) INH SCH ×6 (03:43→23:24)
--- NOTE | 2017-02-16 07:51 | Diag Imaging Result Document ---
PROCEDURE NAME: CHEST-PORTABLE - 02/16/2017 SINGLE FRONTAL RADIOGRAPH OF THE CHEST: COMPARISON: 02/15/2017. FINDINGS: The small lucency at the periphery of the left lower lung zone seen on previous studies is again identified. It is possible that this actually represents a skin fold rather than a pneumothorax. Volume loss and dense opacity on the right is similar to previous studies. No new consolidations identified. Cardiac silhouette is obscured by the opacification on the right but appears to be stable. IMPRESSION: Essentially stable chest. [facility]
--- NOTE | 2017-02-16 08:08 | Diag Imaging Result Document ---
PROCEDURE NAME: CHEST-PORTABLE - 02/15/2017 SINGLE FRONTAL RADIOGRAPH OF THE CHEST: COMPARISON: 02/15/2017. FINDINGS: The lucency at the periphery of the left lower lung zone seen on the previous study is less apparent on the current study. It may have actually represented a skin fold rather than a pneumothorax. Dense opacity throughout the right chest cavity as well as volume loss with rightward mediastinal shift is stable. Increased lung markings suggesting edema most likely throughout the left lung with a basilar predominance is unchanged. IMPRESSION: Lucency at the periphery of the left lower lung zone very difficult to identify on the current study. It may have actually represented a skin fold rather than a pneumothorax. The chest is essentially stable, otherwise.
[2017-02-16] MEDS: SINGULAIR PO SCH (08:45)
[2017-02-16] MEDS: MEVACOR PO SCH (08:45)
[2017-02-16] MEDS: MYLICON PO SCH ×3 (08:45→17:14)
[2017-02-16] MEDS: TRICOR PO SCH (08:45)
[2017-02-16] MEDS: NON-FORMULARY MED PO SCH ×2 (08:46→21:02)
[2017-02-16] MEDS ORDERED: NS 500 ML ONE (10:05)
[2017-02-16 11:07] LABS: HEMATOCRIT 27.8 % (37.0-47.0); HEMOGLOBIN 8.8 g/dL (12.0-16.0); MCH 31.3 PG (27-31); MCHC 31.7 g/dL (33-37); MCV 98.9 FL (81-99); PLT 8 X1000 (130-400); RBC 2.81 XMIL (4.2-5.4)
[2017-02-16 11:26] LABS: ALBUMIN 3.2 g/dL (3.5-5.0); CALCIUM 9.5 mg/dL (8.8-10.2); POTASSIUM 3.2 mmol/L (3.5-5.1)
[2017-02-16] MEDS: PROTONIX IV SCH (12:45)
[2017-02-16] MEDS ORDERED: BENADRYL PO ONE (12:47)
[2017-02-16] MEDS ORDERED: SOLU-MEDROL IV ONE (12:47)
[2017-02-16] MEDS ORDERED: TYLENOL PO ONE (12:47)
--- NOTE | 2017-02-16 14:20 | PROGRESS NOTE ---
DATE: 02/16/2017 SUBJECTIVE: The patient reports noticing some shortness of breath while she moves from lying down to sitting up. She denies any chest pain. She denies any fever or chills. OBJECTIVE: Vital Signs: Temperature 97.6 degrees, heart rate 90, respiratory rate 20, blood pressure 135/75. O2 saturation 99% on Ventimask. General: This is a chronically ill-appearing, frail 76-year-old female lying in bed in no acute distress. HEENT: Head is normocephalic and atraumatic. Anicteric sclerae and pale conjunctivae. Mucous membranes moist. Neck supple. No JVD noted. No carotid bruits. No lymphadenopathy. No thyromegaly. Cardiovascular: S1, S2 heard. No murmurs, gallops, or rubs. Regular rate and rhythm. Respiratory: Decreased breath sounds globally with some coarse breath sounds still present in both bases. The patient is not using any accessory muscles or having work of breathing. Abdomen is soft, nontender to palpation. Bowel sounds present. No organomegaly. Extremities: No clubbing, cyanosis, or edema. Peripheral pulses present in both legs. Neurologic: The patient is alert and oriented x3. Moves 4 extremities. LABORATORY DATA: White cell count 4.3, hemoglobin 8.8, hematocrit 27.8, platelets BMP is remarkable for creatinine 1.6, BUN 34. Sodium 146 with potassium 3.2. ASSESSMENT AND PLAN: 1. Gbyqy-oc-ymoezbe respiratory failure. The patient is still requiring high amount of oxygen by Ventimask. She is still using Ventimask. Regarding left-sided pneumothorax, we have repeated the x-ray today, and it seems like there is a questionable pneumothorax versus skin fold noted in the left side of the lung. We have not seen any clinical change on this patient, so, at this point we are going to continue with the same management. I do not think we will need to put in a chest tube and the fact that this patient has severe thrombocytopenia, which will procure us to perform any procedures on this patient. We are going to continue monitoring this patient closely here in the hospital. 2. Severe thrombocytopenia secondary to myelodysplastic syndrome. Number sanchez, she is the same. We just got 2 units of platelets from but considering that this patient has not had any bleeding while she had single numbers during the last week makes me think that just in case this patient starts bleeding, I will prefer to have platelets because, if we transfused now today, what has most probably happened is that the platelets are going to be destroyed and, in case there is emergent bleeding, there will not be anything that we can provide to her, so I prefer to not transfuse and will leave the decision to transfuse the platelets to Hematology. 3. Urinary tract infection. The patient is on Levaquin and Zosyn. We will continue with the same medications. 4. Blood cultures are negative. 5. Acute kidney injury, most related to vancomycin usage. Dr. Jean is following this patient. Creatinine around the same numbers. 6. Neutropenia. That condition is improving. The patient is receiving Granix. The patient is being following by Hematology/Oncology.
[2017-02-16 14:38] LABS: BASO% 2.4 % (0.0-0.8); EOS# 0.02 X1000 (0.0-0.7); EOS% 0.4 % (0.0-10.0); HEMATOCRIT 25.9 % (37.0-47.0); HEMOGLOBIN 8.3 g/dL (12.0-16.0); LYMPH# 1.08 X1000 (1.2-3.4); MANUAL DIFF NEEDED? YES; MCH 31.9 PG (27-31); MCV 99.6 FL (81-99); MONO# 0.21 X1000 (0.11-0.59); MONO% 3.9 % (1.7-9.3); NEUT% 73.3 % (42.2-75.2); PLT 8 X1000 (130-400)
[2017-02-16 14:45] LABS: BANDS 8 % (0-1); LYMPHS 16 % (21-51); MONO 4 % (1-9)
[2017-02-16 14:46] LABS: HYPOCHROM 1+
[2017-02-16 14:47] LABS: LARGE PLATELETS OCCASIONAL
--- NOTE | 2017-02-16 15:27 | PROGRESS NOTE ---
DATE: 02/16/2017 PRESENT ILLNESS: The patient is receiving radiation therapy and chemotherapy for lung cancer. On the patient's latest chest x-ray there has been clearing of the left lung infiltrates but she continues to have a right lung opacity. MEDICATIONS: The patient is receiving Zosyn as a single agent. PHYSICAL EXAMINATION: Vital Signs: Temperature is 98.6 degrees, pulse 86, respirations 24, blood pressure 107/66. Generally: This is an ill-appearing, elderly female. She tells me she just does not feel good. Lungs: There were diminished breath sounds on the right side. The left side was clear. Cardiovascular: Heart rate is regular. Abdomen: Soft and nontender. LAB AND X-RAY: The patient's chest x-ray showed a right lung opacity. The left lung is cleared. CBC shows a white count of 5410, hemoglobin 8.3 and platelet count 8000. Sputum is growing a normal deana. The patient's creatinine is 1.6 with a GFR of 31. ASSESSMENT AND PLAN: My assessment is the patient does have pneumonia. My plan is to continue giving her Zosyn as a single agent. COMORBIDITIES: Include lung cancer, chemotherapy and radiation therapy. The patient did have neutropenia but this has cleared.
--- NOTE | 2017-02-16 16:09 | PALLIATIVE CARE PROGRESS NOTE ---
DATE: 02/16/2017 SUBJECTIVE: Ms Godinez continues to complain of shortness of breath. She states it improves with lying flat and is worse when sitting up. She denies pain, anxiety or depression. OBJECTIVE: General: This is a chronically ill-appearing, 76-year-old, female, who does not appear to be in any acute distress. HEENT: Atraumatic, normocephalic. Neck: Supple. Cardiovascular: Normal S1, S2. Pulmonary: Lung sounds are diminished. Respirations are nonlabored. Abdomen: Soft. Bowel sounds are present. Extremities: Pulses are palpable. No edema noted. Neuro: Ms Godinez is alert and oriented x3. ASSESSMENT AND PLAN: As previously mentioned, Ms Godinez continues to complain of shortness of breath. She stated it is much improved with laying flat which she is doing so now. She is also still using a Ventimask. She is currently being prepped to receive a unit of platelets. She denies pain. She does not have any questions regarding her current state of health. The palliative care team will continue to follow as needed. Dictated by SEYMOUR Singer for Baljinder Hernadez MD
--- NOTE | 2017-02-16 16:40 | PROGRESS NOTE ---
DATE: 02/16/2017 SUBJECTIVE: Patient is resting in bed. Continues to have some shortness of breath. She relies primarily on the right side. OBJECTIVE: Vital Signs: Temperature 98.2 degrees, pulse 87, respiratory rate 22, blood pressure 111/49/ intake 480 mL. Output has not been measured. General: Elderly female, chronically ill- appearing, resting in bed. No acute distress. HEENT: Normocephalic, atraumatic. She continues with oxygen via Ventimask. Neck: Supple. Trachea midline. Cardiovascular: Regular rate and rhythm. No murmur or gallop. Pulmonary: Continues with decreased breath sounds on the left on a Ventimask. Mild increased work of breathing with movement. Abdomen: Soft, positive bowel sounds. : Not inspected. She continues to void. Extremities: No clubbing , cyanosis. She does have trace pretibial edema. Integumentary: Skin is warm and dry. LABORATORY DATA: WBC of 4.9, hemoglobin 8.8, sodium 146, potassium 3.2, CO2 40 , BUN 36, creatinine 1.6. ASSESSMENT AND PLAN: Acute kidney injury. She has had continued improvement over the last several days. She has had no real change overnight. Her urine output, although not measured, has been adequate until now. Her antibiotics are dosed appropriately. We have nothing further to add at this time. We will continue to monitor. Seen, data reviewed, discussed with Valerie Price on 02/17/17. I agree with the above assessment and plan of care. rg Dictated by SEYMOUR Albright for Aman Jean MD [facility]
[2017-02-16] MEDS: DESYREL PO SCH (21:01)
[2017-02-17] MEDS: DUONEB (A & A) INH SCH ×6 (04:41→23:05)
[2017-02-17] MEDS: ZOSYN 2.25 GM/NS 50 ML IV SCH ×4 (05:22→22:26)
[2017-02-17 06:52] LABS: BASO% 2.3 % (0.0-0.8); EOS# 0.01 X1000 (0.0-0.7); EOS% 0.3 % (0.0-10.0); HEMATOCRIT 28.8 % (37.0-47.0); HEMOGLOBIN 8.9 g/dL (12.0-16.0); IMM GRAN# 0.07 X1000 (0.0-0.04); LYMPH# 0.78 X1000 (1.2-3.4); LYMPH% 22.2 % (20.5-51.1); MANUAL DIFF NEEDED? YES; MCH 30.9 PG (27-31); MCHC 30.9 g/dL (33-37); MONO# 0.22 X1000 (0.11-0.59); MONO% 6.3 % (1.7-9.3); NEUT% 66.9 % (42.2-75.2); RBC 2.88 XMIL (4.2-5.4)
[2017-02-17 06:53] LABS: PLT 9 X1000 (130-400)
[2017-02-17 07:07] LABS: LYMPHS 14 % (21-51); MONO 4 % (1-9)
[2017-02-17 07:20] LABS: CALCIUM 9.6 mg/dL (8.8-10.2); POTASSIUM 3.5 mmol/L (3.5-5.1)
[2017-02-17] MEDS: MYLICON PO SCH ×3 (10:02→17:11)
[2017-02-17] MEDS: TRICOR PO SCH (10:02)
[2017-02-17] MEDS: SINGULAIR PO SCH (10:02)
[2017-02-17] MEDS: NON-FORMULARY MED PO SCH ×2 (10:03→20:22)
[2017-02-17] MEDS: PROTONIX IV SCH (10:03)
[2017-02-17] MEDS: MEVACOR PO SCH (10:03)
[2017-02-17] MEDS ORDERED: FORADIL INH SCH (10:45)
--- NOTE | 2017-02-17 10:53 | PROGRESS NOTE ---
DATE: 02/17/2017 PRESENT ILLNESS: The patient is currently being treated for pneumonia primarily in the right lung. MEDICATIONS: The patient is receiving Zosyn as a single agent. The dose has been reduced because of the patient's renal insufficiency. The patient has been on Zosyn now for a total of 4 days. PHYSICAL EXAMINATION: Vital Signs: Temperature is 97.5 degrees, pulse 95, respirations 20, blood pressure 106/42. General: This is an ill-appearing, elderly female. She is lying in bed and seems to be even a little bit short of breath there. Lungs: There were scattered rhonchi bilaterally. Cardiovascular: The patient's heart rate is regular. I thought I heard a systolic murmur. Abdomen: Soft and nontender. LAB AND X-RAY: A chest x-ray for today is pending. CBC shows a white count of 3520, hemoglobin 8.9, and platelet count 9000. Creatinine is 1.6. The GFR is 31. ASSESSMENT AND PLAN: The patient has pneumonia. My plan is to continue Zosyn as a single agent, as it appears that the patient is getting better. I plan to obtain a CBC and creatinine and repeat chest x-ray later this weekend. COMORBIDITIES: The patient's comorbidities include lung cancer, chemotherapy and radiation therapy as a treatment for the lung cancer. The patient's neutropenia has cleared. MTDD
--- NOTE | 2017-02-17 11:01 | Diag Imaging Result Document ---
PROCEDURE NAME: CHEST-PORTABLE - 02/17/2017 PORTABLE CHEST X-RAY: COMPARISON: 02/16/2017. FINDINGS: There is worsening, near complete opacification of the right hemithorax. There is worsening volume loss with mediastinal deviation to the right. There is improvement in the fine interstitial infiltrate throughout the left lung suggesting improving edema. IMPRESSION: Mixed changes from prior. Overall improvement.
[2017-02-17] MEDS: SPIRIVA INH SCH (11:06)
--- NOTE | 2017-02-17 16:45 | PROGRESS NOTE ---
DATE: 02/17/2017 SUBJECTIVE: Patient reports feeling still shortness of when she moves from lying in bed to sitting in the bed. Denies any fever, chills. Also denies any bleeding like vomiting blood, No blood in the urine, or blood in the stools. OBJECTIVE: Vital Signs: Temperature 97.6 degrees, heart rate 89, respiratory rate 17, blood pressure 102/49. O2 saturation 99% on Venturi mask. General Examination: This is a chronically ill-appearing, frail 76-year-old female lying in bed, in no acute distress. HEENT: Head is normocephalic, atraumatic. Anicteric sclerae and pale conjunctivae. Mucous membranes moist. Neck: Supple. No JVD noted. No carotid bruits. No lymphadenopathy. No thyromegaly. Cardiovascular Examination: S1, S2 heard. No murmurs, gallops, or rubs. Regular rate and rhythm. Respiratory: Clear bilaterally to auscultation. No work of breathing or using accessory muscles. Abdomen: Soft, nontender to palpation. Bowel sounds present. No organomegaly. Extremities: No clubbing, cyanosis, or edema. Peripheral pulses present in both legs. Neurological: Patient alert and oriented x3. Able to move 4 extremities. Cranial nerves 2-12 grossly normal. LABORATORY DATA: White cell count 3.52, hemoglobin 8.9, hematocrit 28.8, platelets 9000. Neutrophil count is 2.36 with BMP that shows creatinine 1.6 and BUN 45. ASSESSMENT AND PLAN: 1. Acute on chronic respiratory failure. The patient continues to use high amounts of oxygen by Ventimask. We have repeated the x-ray and they did not mention any pneumothorax. I think that could have been a skin fold that we see in the x-ray because we have not seen anything in the CT of the chest. At this point, we are going to continue with the same management. We have ruled out lower pneumonia so at this point, we will see what Pulmonary has to say. 2. Severe thrombocytopenia. The platelet count continues to be the same despite transfusing platelets at the beginning of her stay at hospital. During the last 4 days even though she did not receive anything except 1 unit yesterday, the platelet count is still the same. At this time, I prefer to watch this patient and not transfuse anything because she has developed antibodies in the platelets so in case we need more platelets transfused, we need to get it from [place]. 3. Urinary tract infection. Patient on Levaquin and Zosyn. We will continue with the same management. 4. Blood cultures negative. 5. Acute kidney injury. There is most likely related to vancomycin. Dr. Jean is following this patient. 6. Neutropenia resolved. cc: Carlos Stanley MD
[2017-02-17] MEDS: DESYREL PO SCH (20:21)
[2017-02-17] MEDS: PERFOROMIST NEB INH SCH (22:11)
[2017-02-18] MEDS: ZOSYN 2.25 GM/NS 50 ML IV SCH ×4 (05:00→22:58)
[2017-02-18] MEDS: DUONEB (A & A) INH SCH ×5 (07:20→20:10)
[2017-02-18] MEDS ORDERED: SODIUM CHLORIDE 0.9% 10 ML ONE (08:10)
[2017-02-18] MEDS ORDERED: SOLU-MEDROL IV ONE (08:45)
[2017-02-18] MEDS ORDERED: BENADRYL PO ONE (08:45)
[2017-02-18] MEDS ORDERED: TYLENOL PO ONE (08:45)
[2017-02-18] MEDS: SINGULAIR PO SCH (09:00)
[2017-02-18] MEDS: TRICOR PO SCH (09:00)
[2017-02-18] MEDS: MEVACOR PO SCH (09:00)
[2017-02-18] MEDS: NON-FORMULARY MED PO SCH ×2 (09:00→22:57)
[2017-02-18] MEDS: MYLICON PO SCH ×3 (09:00→17:00)
[2017-02-18] MEDS: PROTONIX IV SCH (10:00)
[2017-02-18] MEDS ORDERED: NS 500 ML ONE (10:20)
--- NOTE | 2017-02-18 14:19 | PROGRESS NOTE ---
DATE: 02/18/2017 SUBJECTIVE: Patient reports he is still feeling short of breath that is more evident when she moves from a lying down position to sitting up in the bed. Denies any fever or chills. Denies any signs of bleeding like blood in the stools, blood in the urine or vomiting blood. OBJECTIVE: Vital Signs: Patient is still requiring Venturi mask at 35% to maintain oxygen saturation above 90. General: This is a chronically ill appearing, and frail 76-year-old female lying in bed, in no acute distress. HEENT: Head is normocephalic, atraumatic. Anicteric sclerae and pale conjunctivae. Mucous membranes moist. Neck: Supple. No JVD noted. No carotid bruits. No lymphadenopathy. No thyromegaly. Cardiovascular: S1 and S2 heard. No murmurs, gallops, or rubs. Regular rate and rhythm. Respiratory: Decreased breath sounds globally with no work of breathing noted, not using accessory muscles. In the right side of the lung, there are no breath sounds noted. Abdomen: Soft, nontender to palpation. Bowel sounds present. No organomegaly. Extremities: No clubbing, cyanosis, or edema. Peripheral pulses present in both legs. Neurological: Patient is alert and oriented x3. Able to move 4 extremities. Cranial nerves 2-12 grossly normal. LABORATORY DATA: Platelet count from today is 7000 and creatinine 1.6. ASSESSMENT/PLAN: 1. Acute on chronic respiratory failure. As we mentioned before, patient continues to use high amount of oxygen. She has a right pleural effusion noted in previous x-rays but, unfortunately, we are not able to proceed with any thoracentesis considering her extremely low platelet count. In any case, we prefer to continue monitoring her closely here in the hospital. Pulmonary is following. 2. Severe thrombocytopenia. Platelet count is still low, so there is an order for Hematology to transfuse 1 unit of platelets today. We hope that this patient is not going to start bleeding any time because it is extremely difficult to get platelets for her considering that she has been receiving many platelet transfusions. She has developed some antibodies to those. 3. Urinary tract infection. Patient is on Levaquin and Zosyn. We will continue with the same management. Blood cultures negative. 4. Acute kidney injury. As we mentioned before, that is most likely related to vancomycin although other factors may have played a role in this problem. During the last 4 days the hemoglobin has increased to 1.6 and since then has been around that number. Dr. Jean from Nephrology is following this patient. 5. Neutropenia. That condition is completely resolved. cc: Carlos Stanley MD
[2017-02-18 18:26] LABS: AGAP 10; BUN 35 mg/dL (8-22); CHLORIDE 99 mmol/L (98-107); COSMO 301; POTASSIUM 3.8 mmol/L (3.5-5.1); SODIUM 147 mmol/L (136-145); TCO2 38 mmol/L (25-35)
[2017-02-18 19:00] LABS: BASO% 3.8 % (0.0-0.8); EOS# 0.02 X1000 (0.0-0.7); EOS% 0.9 % (0.0-10.0); HEMATOCRIT 25.5 % (37.0-47.0); HEMOGLOBIN 7.7 g/dL (12.0-16.0); IMM GRAN# 0.08 X1000 (0.0-0.04); IMM GRAN% 3.8 % (0.0-0.5); LYMPH# 0.74 X1000 (1.2-3.4); LYMPH% 34.9 % (20.5-51.1); MANUAL DIFF NEEDED? YES; MCH 30.4 PG (27-31); MCHC 30.2 g/dL (33-37); MCV 100.8 FL (81-99); MONO# 0.17 X1000 (0.11-0.59); NEUT% 48.6 % (42.2-75.2); RBC 2.53 XMIL (4.2-5.4)
[2017-02-18 19:09] LABS: BANDS 2 % (0-1)
[2017-02-18 19:10] LABS: BASO 2 % (0-1); EOS 2 % (1-10); LYMPHS 30 % (21-51); MONO 2 % (1-9)
[2017-02-18] MEDS: PERFOROMIST NEB INH SCH (20:10)
[2017-02-18 20:14] LABS: PLT 7 X1000 (130-400)
[2017-02-18] MEDS: DESYREL PO SCH (22:57)
[2017-02-19] MEDS: DUONEB (A & A) INH SCH ×7 (00:18→23:17)
[2017-02-19] MEDS: SPIRIVA INH SCH ×2 (07:51→08:52)
[2017-02-19 08:02] LABS: BASO% 4.2 % (0.0-0.8); HEMATOCRIT 23.9 % (37.0-47.0); HEMOGLOBIN 7.3 g/dL (12.0-16.0); IMM GRAN# 0.07 X1000 (0.0-0.04); IMM GRAN% 4.2 % (0.0-0.5); LYMPH# 0.52 X1000 (1.2-3.4); LYMPH% 31.1 % (20.5-51.1); MANUAL DIFF NEEDED? YES; MCH 30.7 PG (27-31); MCHC 30.5 g/dL (33-37); MCV 100.4 FL (81-99); MONO# 0.15 X1000 (0.11-0.59); NEUT% 51.5 % (42.2-75.2); RBC 2.38 XMIL (4.2-5.4)
[2017-02-19 08:03] LABS: POTASSIUM 3.5 mmol/L (3.5-5.1)
[2017-02-19 08:06] LABS: PLT 6 X1000 (130-400)
[2017-02-19 08:25] LABS: BANDS 4 % (0-1); EOS 2 % (1-10); LYMPHS 30 % (21-51); MONO 12 % (1-9)
[2017-02-19 08:26] LABS: HYPOCHROM 1+
[2017-02-19] MEDS: MEVACOR PO SCH (08:36)
[2017-02-19] MEDS: TRICOR PO SCH (08:38)
[2017-02-19] MEDS: NON-FORMULARY MED PO SCH (08:38)
[2017-02-19] MEDS: SINGULAIR PO SCH (08:38)
[2017-02-19] MEDS: MYLICON PO SCH ×3 (08:38→16:04)
[2017-02-19] MEDS: ZOSYN 2.25 GM/NS 50 ML IV SCH (10:04)
[2017-02-19] MEDS: SODIUM CHLORIDE 0.9% 10 ML ONE (10:04)
[2017-02-19] MEDS: PROTONIX IV SCH (10:04)
[2017-02-19] MEDS ORDERED: TYLENOL PO ONE (14:10)
[2017-02-19] MEDS ORDERED: BENADRYL PO ONE (14:10)
--- NOTE | 2017-02-19 15:37 | PROGRESS NOTE ---
DATE: 02/19/2017 SUBJECTIVE: Patient continues to feel short of breath. Denies any fever or chills. She denies any signs of bleeding like vomiting blood or blood in stool or in the urine. OBJECTIVE: Vital Signs: Temperature 97.7 degrees, heart rate 81, respiratory rate 20, blood pressure 96/28, and O2 saturation 99% on Venturi mask at 35%. General: This is a chronically ill- looking and frail 76-year-old female lying in bed in no acute distress. HEENT: Head is normocephalic, atraumatic. Anicteric sclerae and pale conjunctivae. Mucous membranes dry. Neck: Supple. No JVD noted. No carotid bruits. No lymphadenopathy. No thyromegaly. Cardiovascular: S1 and S2 heard. No murmurs, gallops, or rubs. Regular rate and rhythm. Respiratory: Clear bilaterally to auscultation. Decreased breath sounds in the right side of the lung. Patient is not using any accessory muscles or having work of breathing. Abdomen: Soft, nontender to palpation. Bowel sounds present. No organomegaly. Extremities: No clubbing, cyanosis, or edema. Peripheral pulses present in both legs. Neurological: Patient alert and oriented x3. Able to move all 4 extremities. LABORATORY DATA: White cell count 1.67, hemoglobin 7.3 hematocrit 23.9, platelets 6000. Sodium 147, potassium 3.5, chloride 102, bicarbonate 38, BUN 38, creatinine 1.4. ASSESSMENT AND PLAN: 1. Acute on chronic respiratory failure. Patient continues to require high amounts of oxygen despite being on inhalers and also diuretics. It seems that she had a right pleural effusion. Patient has also dextrocardia and it would be probably helpful to have a thoracentesis, then to try to move some fluids and try to help expand the lung, but the problem is severe thrombocytopenia. Pulmonary is following this patient. 2. Severe thrombocytopenia. Patient continues to have extremely low platelet count and, hopefully for her, she is not bleeding any. The problem, as we mentioned before, is that she has developed some antibodies secondary to many platelet transfusions. We have transfused so far 2 units that came from [place], so at this point we are going to talk with Hematology/Oncology because it seems like this bone marrow is not working at all. The hemoglobin is trending down again and we are going to transfuse 2 units of blood. We have kept transfusing platelets since admission and those platelets have not moved up any, and now the white cell count is going down. At this time, we will see what Hematology/Oncology have to say regarding this condition. 3. Urinary tract infection. Patient is not complaining of any pain when she urinates. Considering that this patient has been on antibiotics since 02/13/2017 and it has been 1 week, we prefer to stop it by now, since Zosyn can also worsen thrombocytopenia as well. 4. Acute kidney injury that is most likely related to vancomycin and also strain from low blood pressure. Dr. Jean is following this patient. Creatinine so far has been in the range of 1.4 to 1.6. We will continue with the same management. 5. Neutropenia. Today, the neutrophil count is going down again and there is 800 absolute neutrophil count today. We will continue with the same management. The patient was stopped from Granix, but it has not been restarted yet. We will defer that decision to Hematology/Oncology. cc: MD YECENIA Harding
[2017-02-19] MEDS ORDERED: NS 500 ML ONE (17:18)
[2017-02-19] MEDS: PERFOROMIST NEB INH SCH (22:03)
[2017-02-20] MEDS: DESYREL PO SCH ×2 (00:49→19:51)
[2017-02-20] MEDS: NON-FORMULARY MED PO SCH ×3 (00:49→19:52)
[2017-02-20] MEDS: DUONEB (A & A) INH SCH ×4 (03:29→15:37)
[2017-02-20 07:02] LABS: BASO% 6.1 % (0.0-0.8); EOS# 0.03 X1000 (0.0-0.7); EOS% 1.1 % (0.0-10.0); HEMOGLOBIN 9.1 g/dL (12.0-16.0); IMM GRAN# 0.12 X1000 (0.0-0.04); IMM GRAN% 4.3 % (0.0-0.5); LYMPH# 0.93 X1000 (1.2-3.4); LYMPH% 33.3 % (20.5-51.1); MANUAL DIFF NEEDED? YES; MCHC 31.4 g/dL (33-37); MCV 98.6 FL (81-99); MONO# 0.23 X1000 (0.11-0.59); MONO% 8.2 % (1.7-9.3); RBC 2.94 XMIL (4.2-5.4)
[2017-02-20 07:04] LABS: PLT 9 X1000 (130-400)
[2017-02-20 07:11] LABS: BANDS 2 % (0-1); LYMPHS 30 % (21-51); MONO 10 % (1-9)
[2017-02-20 07:15] LABS: CALCIUM 9.2 mg/dL (8.8-10.2); POTASSIUM 3.9 mmol/L (3.5-5.1)
[2017-02-20] MEDS: PERFOROMIST NEB INH SCH (07:33)
[2017-02-20] MEDS: SPIRIVA INH SCH (07:33)
[2017-02-20] MEDS: MYLICON PO SCH ×3 (08:17→16:29)
[2017-02-20] MEDS: MEVACOR PO SCH (08:17)
[2017-02-20] MEDS: TRICOR PO SCH (08:17)
[2017-02-20] MEDS: SINGULAIR PO SCH (08:17)
[2017-02-20] MEDS: PROTONIX IV SCH (09:48)
[2017-02-20] MEDS: SODIUM CHLORIDE 0.9% 10 ML ONE (09:48)
--- NOTE | 2017-02-20 16:30 | PALLIATIVE CARE PROGRESS NOTE ---
DATE: 02/20/2017 SUBJECTIVE: Ms. Godinez complains of shortness of breath. She denies pain, anxiety or depression. She is sitting up at the bedside with her daughter present. OBJECTIVE: General: This is a chronically ill-appearing, 76-year-old, female, who appears in mild respiratory distress. HEENT: Atraumatic, normocephalic. Neck is supple. Cardiovascular: Normal S1, S2. Pulmonary: Lung sounds are diminished. Respirations are slightly labored. Abdomen: Soft. Bowel sounds are active. Extremities: Pulses are palpable. Neurologic: Ms. Godinez is alert, oriented x3. ASSESSMENT/PLAN: The daughter and patient had questions regarding home palliative care services versus home hospice services. The daughter states that they are awaiting a visit from Dr. García to discuss any further plans. As previously mentioned, Ms. Godinez complains of shortness of breath that she states is getting worse. I would recommend a 5 mg dose of Roxanol to use every 3 hours for her dyspnea. Ms Godinez is a DNR level 2. The palliative care team will continue to follow. Dictated by SEYMOUR Singer for Baljinder Hernadez MD cc: SEYMOUR Singer MD
--- NOTE | 2017-02-20 17:16 | PROGRESS NOTE ---
DATE: 02/20/2017 PRESENT ILLNESS: The patient has a right lung pneumonia. MEDICATIONS: Currently the patient is not on any antibiotics. PHYSICAL EXAMINATION: Vital Signs: Temperature is 98 degrees, pulse 87, respirations 21, blood pressure 120/78. General: This is a chronically ill-appearing, elderly female. She is in no acute distress. Lungs: Clear to auscultation. Cardiovascular: Heart rate is regular. Abdomen: Soft and nontender. LAB AND X-RAY: There is no chest x-ray for today. The patient's CBC shows a white count of 2,790, hemoglobin 9.1, and platelet count 9,000. Creatinine is 1.3. GFR is 40. ASSESSMENT AND PLAN: The patient may still have pneumonia. My plan is to get a chest x-ray tomorrow to determine if the patient needs restarting of her antibiotics. We plan to stay away from [facility] because it may have been causing some of the patient's low blood counts. The patient's comorbidities include lung cancer, chemotherapy, radiation therapy, and neutropenia. cc: Lv Mcgee MD
--- NOTE | 2017-02-20 17:23 | PROGRESS NOTE ---
DATE: 02/20/2017 SUBJECTIVE: Patient continues to feel short of breath although less when compared with previous days. Denies any fever or chills. Denies any sign of bleeding like vomiting blood, blood in urine or vomiting blood. OBJECTIVE: Vital Signs: Temperature 98.0 degrees, heart rate 87, respiratory rate 21, blood pressure 120/70, O2 saturation 92% on Venturi mask. General Examination: This is a chronically ill-looking, frail, 76-year-old female, lying in bed, in no acute distress. HEENT: Head is normocephalic, atraumatic. Anicteric sclerae, pale conjunctivae. Mucous membranes moist. Neck: Supple. No JVD noted. No carotid bruits. No lymphadenopathy. No thyromegaly. Cardiovascular: S1, S2 heard. No murmurs, gallops, or rubs. Regular rate and rhythm. Respiratory Examination: Clear bilaterally to auscultation. No work of breathing or using accessory muscles. Abdomen: Soft, nontender to palpation. Bowel sounds present. No organomegaly. Respiratory Examination: Decreased breath sounds globally mostly in the right side of the lung. Patient is not using any accessory muscles or having work of breathing. Abdomen: Soft, nontender to palpation, bowel sounds present. No organomegaly. Extremities: No clubbing, cyanosis, or edema. Peripheral pulses present in both legs. Neurological Examination: Patient is alert and oriented x3. Able to move 4 extremities. LABORATORY DATA: White cell count 2.79, hemoglobin 9.1, hematocrit 29.0, platelets 9,000. BMP shows creatinine 1.3 and BUN 34. ASSESSMENT AND PLAN: 1. Acute on chronic respiratory failure. Patient continues to require high amounts of oxygen despite being on inhalers and diuretics. It looks like from x-rays she had a right pleural effusion. Patient is on It would be probably helpful to do thoracentesis and see if that helps but we cannot do anything because of the severe thrombocytopenia that has not improved any during her stay at the hospital. Pulmonary, Dr. Hernadez, is following this patient. His help us appreciated. 2. Severe thrombocytopenia that is secondary to myelodysplastic syndrome. She has been receiving platelet transfusion and her platelet count overall has not changed, basically running between 6 and 9000. Lastly patient has developed many antibodies secondary to multiple transfusions. The last transfusion we got from [place] and it took 4 days to get it here. At this time we have talked with the Oncology Nurse Practitioner and apparently they are planning to talk with this patient about hospice paced because she is not going to improve unfortunately. We will follow their recommendations. 3. Urinary tract infection. That condition is resolved. 4. Acute kidney injury most likely related to vancomycin that the patient has been on since admission. Vancomycin has been stopped 6 days ago and the creatinine is improving very mildly. 5. Neutropenia. Aware. We will leave the management of this condition to Hematology. 6. Physical deconditioning. Physical Therapy is working with this patient. cc: Carlos Stanley MD
[2017-02-20] MEDS: AMBIEN PO SCH (19:52)
[2017-02-21] MEDS: DESYREL PO SCH ×2 (02:46→19:52)
[2017-02-21] MEDS: AMBIEN PO SCH ×2 (02:46→19:51)
[2017-02-21] MEDS: NON-FORMULARY MED PO SCH ×3 (02:46→19:52)
[2017-02-21] MEDS: DUONEB (A & A) INH SCH ×6 (03:29→19:28)
[2017-02-21] MEDS: PERFOROMIST NEB INH SCH ×3 (03:30→19:29)
[2017-02-21] MEDS: NORCO-5 PO PRN (05:03)
[2017-02-21 06:35] LABS: BASO% 5.1 % (0.0-0.8); EOS# 0.01 X1000 (0.0-0.7); EOS% 0.5 % (0.0-10.0); HEMATOCRIT 27.6 % (37.0-47.0); HEMOGLOBIN 8.6 g/dL (12.0-16.0); IMM GRAN# 0.07 X1000 (0.0-0.04); IMM GRAN% 3.6 % (0.0-0.5); LYMPH# 0.73 X1000 (1.2-3.4); LYMPH% 37.4 % (20.5-51.1); MANUAL DIFF NEEDED? YES; MCH 31.2 PG (27-31); MCHC 31.2 g/dL (33-37); MONO# 0.14 X1000 (0.11-0.59); MONO% 7.2 % (1.7-9.3); NEUT% 46.2 % (42.2-75.2); RBC 2.76 XMIL (4.2-5.4)
[2017-02-21 06:36] LABS: PLT 9 X1000 (130-400)
[2017-02-21 06:47] LABS: CALCIUM 8.8 mg/dL (8.8-10.2)
[2017-02-21 07:23] LABS: BANDS 4 % (0-1); LYMPHS 44 % (21-51); MONO 12 % (1-9)
[2017-02-21] MEDS: SPIRIVA INH SCH (07:55)
--- NOTE | 2017-02-21 09:30 | Diag Imaging Result Document ---
PROCEDURE NAME: CHEST-1 VIEW - 02/21/2017 SINGLE FRONTAL RADIOGRAPH OF THE CHEST: COMPARISON: 02/17/2017. FINDINGS: Right lung volume loss with rightward mediastinal shift is stable. There is slightly improved aeration of the lung on the right at the mid lung zone. Fine interstitial infiltrate on the left is unchanged. No new consolidations are identified. Cardiac silhouette appears to be stable. IMPRESSION: Modest improvement of the dense opacity on the right as described. Otherwise, stable.
[2017-02-21] MEDS: MEVACOR PO SCH (10:05)
[2017-02-21] MEDS: SINGULAIR PO SCH (10:06)
[2017-02-21] MEDS: TRICOR PO SCH (10:06)
[2017-02-21] MEDS: MYLICON PO SCH ×3 (10:07→19:52)
[2017-02-21] MEDS: PROTONIX IV SCH (10:07)
[2017-02-21] MEDS ORDERED: VENTOLIN HFA INH PRN (14:23)
--- NOTE | 2017-02-21 15:23 | PROGRESS NOTE ---
DATE: 02/21/2017 SUBJECTIVE: This patient looks better today but she is still having shortness of breath. She denies any fever. She denies chills. No nausea. No vomiting. Her platelet count is 9000 but she does not have any signs of bleed. She has been getting platelet transfusion and apparently her platelet count overall has not changed. We have been having trouble getting blood for her because she has antibodies. Apparently the plan is to send this patient with hospice. I talked to the patient and she agreed with these so I will talk to the social insurance adviser to set this up. OBJECTIVE: Vital Signs: Temperature 99 degrees, pulse 93, respiratory rate 22, blood pressure 100/30, oxygen saturation 96 on a Venturi mask. HEENT: Head normocephalic. No trauma. PERRLA. Neck: Supple. No JVD. No masses. Central trachea. Cardiovascular: RRR. No murmurs. Chest: Clear to auscultation. No wheezing. No rales. Abdomen: Soft, nontender, nondistended. Positive bowel sounds. Chest: Decreased breath sounds globally and is mostly at the level of the right side of the lung base. Extremities: No clubbing, no cyanosis. No edema. Neurological: The patient is alert and oriented x3. No focal neurological deficits. LABORATORY: WBC 1.9, hemoglobin 8.6, hematocrit 27.6, platelets 9000. Sodium 143, potassium 4, chloride 100, bicarbonate 36, BUN 32, creatinine 1.4. Glucose 109. Calcium 8.8. ASSESSMENT AND PLAN: 1. Acute on chronic respiratory failure. This patient is requiring a Venturi mask plus high oxygen. She has right pleural effusion but we cannot do a thoracentesis because this patient's platelets are low. Pulmonary department is following this patient. 2. Severe thrombocytopenia. Likely secondary to myelodysplastic syndrome. She has been getting transfusion and her platelet count has not changed. It is running between 6000 and 9000 and like I said before, this patient developed so many antibiotics that is really hard to find blood for her. Either way, I will ask for platelets today. 3. Urinary tract infection. Resolved. 4. Acute kidney injury. The creatinine has been stable. We will continue to monitor. 5. Neutropenia. Aware. We will continue following the recommendations of Hematology Department. 6. Physical deconditioning. Continue with physical therapy. cc: Lenin Akhtar MD
[2017-02-21] MEDS ORDERED: DUONEB (A & A) INH PRN (15:26)
[2017-02-21] MEDS: XANAX PO PRN (15:42)
--- NOTE | 2017-02-21 18:04 | PALLIATIVE CARE PROGRESS NOTE ---
DATE: 02/21/2017 SUBJECTIVE: Ms. Perez is sitting up in the bedside chair. She complains of shortness of breath. She denies pain, nausea. There is no family at the bedside. OBJECTIVE: General: This is a chronically ill-appearing 76-year-old, female, who appears in mild respiratory distress. HEENT: Atraumatic, normocephalic. Neck: Supple. Cardiovascular: Regular rate and rhythm with murmur. Pulmonary: Lung sounds are diminished, clear, respirations are slightly labored especially with conversation. Abdomen: Soft. Bowel sounds are active. Extremities: Pulses are palpable. No edema noted. Neuro: She is alert and oriented x3. ASSESSMENT/PLAN: Ms. Godinez states that the plan is to discharge home with hospice. I answered her questions regarding home hospice services. We discussed the use of Roxanol for the management of her dyspnea. She states that morphine has given her a headache in the past. OxyFAST 20 mg/mL 5 mg by mouth every 2 hours would be a good option in treating her shortness of breath. I explained this medication to her and she is agreeable. The palliative care team will continue to follow daily until discharge. Dictated by SEYMOUR Singer for Baljinder Hernadez MD cc: SEYMOUR Singer MD
[2017-02-21] MEDS ORDERED: OXY IR PO PRN (20:17)
[2017-02-22] MEDS: DUONEB (A & A) INH SCH ×7 (01:19→23:29)
[2017-02-22] MEDS ORDERED: SODIUM CHLORIDE 0.9% 10 ML ONE (07:12)
[2017-02-22] MEDS: PERFOROMIST NEB INH SCH ×2 (07:45→19:22)
[2017-02-22] MEDS: SPIRIVA INH SCH (07:45)
[2017-02-22 07:49] LABS: CALCIUM 9.4 mg/dL (8.8-10.2)
[2017-02-22 07:57] LABS: BASO% 4.4 % (0.0-0.8); EOS# 0.03 X1000 (0.0-0.7); EOS% 1.7 % (0.0-10.0); HEMATOCRIT 29.7 % (37.0-47.0); HEMOGLOBIN 9.3 g/dL (12.0-16.0); IMM GRAN# 0.06 X1000 (0.0-0.04); IMM GRAN% 3.3 % (0.0-0.5); LYMPH# 0.66 X1000 (1.2-3.4); LYMPH% 36.7 % (20.5-51.1); MANUAL DIFF NEEDED? YES; MCH 31.4 PG (27-31); MCHC 31.3 g/dL (33-37); MCV 100.3 FL (81-99); MONO# 0.13 X1000 (0.11-0.59); MONO% 7.2 % (1.7-9.3); NEUT% 46.7 % (42.2-75.2); RBC 2.96 XMIL (4.2-5.4)
[2017-02-22] MEDS: AMBIEN PO SCH ×2 (07:59→20:31)
[2017-02-22] MEDS: DESYREL PO SCH ×2 (07:59→20:32)
[2017-02-22] MEDS: NON-FORMULARY MED PO SCH ×3 (07:59→20:32)
[2017-02-22] MEDS: MYLICON PO SCH ×4 (07:59→18:59)
[2017-02-22 08:01] LABS: PLT 12 X1000 (130-400)
[2017-02-22 08:29] LABS: BANDS 4 % (0-1); LYMPHS 44 % (21-51); MONO 20 % (1-9)
[2017-02-22 08:30] LABS: HYPOCHROM 1+
[2017-02-22] MEDS: MEVACOR PO SCH (08:54)
[2017-02-22] MEDS: TRICOR PO SCH (08:54)
[2017-02-22] MEDS: SINGULAIR PO SCH (08:54)
[2017-02-22] MEDS: PROTONIX IV SCH (10:42)
--- NOTE | 2017-02-22 11:58 | PALLIATIVE CARE PROGRESS NOTE ---
DATE: 02/22/2017 SUBJECTIVE: Ms. Godinez is resting quietly on my arrival. She arouses easily and denies pain, nausea or anxiety. She states her appetite is good. She continues to complain of shortness of breath. But states that it is better than yesterday. OBJECTIVE: General: This is a chronically ill-appearing, 76-year-old, female, who appears very pleasant and not in any acute distress. HEENT: Atraumatic, normocephalic. Neck: Supple. Cardiovascular: Regular rate and rhythm with murmur. Pulmonary: Lung sounds are diminished but clear. Respirations are nonlabored. Abdomen: Soft. Bowel sounds are active. Extremities: Pulses are palpable. No edema noted. ASSESSMENT AND PLAN: Ms. Godinez states that she is waiting to speak with a hospice insurance account representative to develop a discharge plan. She continues to complain of shortness of breath. She does have OxyIR ordered to assist with her dyspnea. Ms Godinez is made aware of that. Per chart review, she did have an episode of anxiety yesterday related to and dying. She states that she is feeling much better today and the medication was very effective. Ms. Godinez does not have any other questions regarding hospice at this time. The palliative care team will continue to follow. Dictated by SEYMOUR Singer for Baljinder Hernadez MD cc: SEYMOUR Singer MD
[2017-02-22] MEDS: XANAX PO PRN (15:37)
--- NOTE | 2017-02-22 15:42 | PROGRESS NOTE ---
DATE: 02/22/2017 SUBJECTIVE: This patient looks stable today. She is still having shortness of breath. She denies any nausea, vomiting. No diarrhea. No constipation. No fever. No chills. Platelet count today is 12,000 and no signs of bleed. She has been getting platelet transfusion before and apparently her platelet count overall has not changed. Also we have been having trouble getting blood for her because she has multiple antibodies. Today I talked to the patient and the plan is to go home with hospice. I talked to the social science instructor today and they are trying to set everything up for this patient because she is getting high oxygen. OBJECTIVE: Vital Signs: Temperature 98.9 degrees, pulse 91, respiratory rate 20, blood pressure 96/67, oxygen saturation 99 on Venturi mask. HEENT: Head normocephalic. No trauma. PERRLA. Neck: Supple. No JVD. No masses. Central trachea. Cardiovascular: RRR. No murmurs. Chest: Clear to auscultation. Decreased breath sounds on the right side with mild scattered rhonchi. Abdomen: Soft, nontender, nondistended. No hepatosplenomegaly. Extremities: No clubbing. No cyanosis. No edema. Neurological: The patient is alert and oriented x3. No focal neurological deficits. LABORATORY: WBC 1.8, hemoglobin 9.3, hematocrit 29.7, platelet 12,000. Sodium 144, potassium 4, chloride 101, bicarbonate 37, BUN 31, creatinine 1.3, glucose 98, calcium 9.4. ASSESSMENT AND PLAN: 1. Acute on chronic respiratory failure. This patient is receiving oxygen through a Venturi mask. Hospice is on board and they are trying to get everything set up for this patient. Hopefully tomorrow this patient will be discharged. 2. Severe thrombocytopenia, likely secondary to myelodysplastic syndrome. She has been getting transfusions but her platelet count has not changed. Today it is 12,000. Will continue to monitor. 3. Urinary tract infection. Resolved. 4. Acute kidney injury. Stable. Will monitor. 5. Neutropenia, aware. We will continue following the recommendations of hematology/oncology department. 6. Physical deconditioning. Continue with physical therapy. cc: Lenin Akhtar MD
[2017-02-23] MEDS: DUONEB (A & A) INH SCH ×2 (04:27→08:15)
[2017-02-23] MEDS: NORCO-5 PO PRN (04:44)
[2017-02-23 07:07] LABS: BASO% 4.5 % (0.0-0.8); EOS# 0.02 X1000 (0.0-0.7); HEMATOCRIT 28.5 % (37.0-47.0); HEMOGLOBIN 8.8 g/dL (12.0-16.0); IMM GRAN# 0.06 X1000 (0.0-0.04); LYMPH# 0.69 X1000 (1.2-3.4); LYMPH% 34.3 % (20.5-51.1); MANUAL DIFF NEEDED? NO; MCH 31.2 PG (27-31); MCHC 30.9 g/dL (33-37); MCV 101.1 FL (81-99); MONO# 0.15 X1000 (0.11-0.59); MONO% 7.5 % (1.7-9.3); NEUT% 49.7 % (42.2-75.2); RBC 2.82 XMIL (4.2-5.4)
[2017-02-23 07:08] LABS: PLT 8 X1000 (130-400)
[2017-02-23 07:21] LABS: CALCIUM 9.4 mg/dL (8.8-10.2); POTASSIUM 4.6 mmol/L (3.5-5.1)
[2017-02-23] MEDS ORDERED: SODIUM CHLORIDE 0.9% 10 ML ONE (07:38)
[2017-02-23 07:49] VITALS: BP 114/40
[2017-02-23] MEDS: PERFOROMIST NEB INH SCH (08:15)
[2017-02-23] MEDS: SPIRIVA INH SCH (08:20)
[2017-02-23] MEDS: NON-FORMULARY MED PO SCH (08:48)
[2017-02-23] MEDS: MEVACOR PO SCH (08:48)
[2017-02-23] MEDS: TRICOR PO SCH (08:48)
[2017-02-23] MEDS: MYLICON PO SCH ×2 (08:48→12:06)
[2017-02-23] MEDS: SINGULAIR PO SCH (08:48)
[2017-02-23] MEDS: PROTONIX IV SCH ×2 (08:49→10:49)
[2017-02-23] MEDS ORDERED: ATIVAN PO PRN (10:22)
--- NOTE | 2017-02-23 14:49 | PALLIATIVE CARE PROGRESS NOTE ---
DATE: 02/23/2017 SUBJECTIVE: Ms. Godinez is sitting up in the bedside chair. She continues to complain of shortness of breath but states that overall she is feeling pretty good today. She is being discharged home with hospice today. OBJECTIVE: General: This is a chronically ill-appearing, 76-year-old, female, who appears very pleasant and not in any acute distress. HEENT: Atraumatic, normocephalic. Cardiovascular: Regular rate and rhythm with murmur. Pulmonary: Lung sounds are diminished but clear. Respirations are nonlabored. Abdomen: Soft. Bowel sounds are active. ASSESSMENT AND PLAN: Ms. Godinez will be discharged home with hospice services today. Her daughter is at the bedside and had questions regarding the transport home. Questions were answered. The palliative care team will continue to follow as needed. Dictated by SEYMOUR Singer for Baljinder Hernadez MD cc: SEYMOUR Singer MD MTDD
--- NOTE | 2017-02-24 09:29 | DISCHARGE SUMMARY ---
ADMISSION DATE: 02/06/2017 DISCHARGE DATE: 02/23/2017 CONSULTATIONS: 1. Dr. Hernadez, pulmonology. 2. SEYMOUR Singer, palliative care. 3. Dr. Lv Mcgee, Infectious Disease. 4. Dr. Colbert, cardiology. PERTINENT PROCEDURES: Chest CT shows suggestion of some worsening of airspace opacities in the right lower lung zones, increased pulmonary fluid on the right, development of fine nodularity in the anterior the left upper lobe that is probably inflammatory, questionable increase in the prominence of shotty small lymph nodes in the mediastinum that are probably reactive. Renal ultrasound showed worsening splenomegaly. Echocardiogram showed an EF of 70-75%, hyperdynamic. Pulmonary arteriogram showed increasing chronic rib fractures on the right. DISCHARGE DIAGNOSES: 1. [id number] respiratory failure. Patient is receiving oxygen through a venturi mask. Hospice is on board. Patient has made arrangements to be setup for home with hospice today. 2. Severe thrombocytopenia secondary to myelodysplastic syndrome. The patient has been receiving transfusions followed by oncology but the platelet count remains unchanged. 3. Urinary tract infection, resolved. 4. Acute kidney injury, stable. 5. Neutropenia, aware. 6. Physical deconditioning. The patient is going home with hospice. HOSPITAL COURSE: Ms. Godinez is a 76-year-old female who has a history of non-small cell cancer, COPD, dextrocardia, recurrent pneumonia followed by Dr. García and Dr. Hernadez on an outpatient basis. She is currently on chemotherapy, which was last performed the Monday prior to her admission. She states that, for 4 days, she had been having fairly severe diarrhea, shortness of breath, and, ultimately, hemoptysis. She states that her diarrhea had stopped but she had been having worsening shortness of breath and when asked to quantify her hemoptysis, she said she was coughing holger blood. She reports fevers of 102.3 but no chest pain, no abdominal pain. She also reported severe reflux-type symptoms with bile production but no nausea or vomiting. Did report orthopnea but no lower extremity edema or any other acute symptoms. She went to Dr. García's office on the morning of her admission. She was directed to the ED. Lab and diagnostics were done. She was noted to be pancytopenic with critical thrombocytopenia and neutropenia. Chest x-ray showed increased densities in the mid lower right lung with pleural thickening or effusions and overall appearance similar to previous exam. Her vital signs were stable. She was admitted for further treatment and evaluation. They did rule out PE with CTA. She was treated for recurrent pneumonia. She was covered with Levaquin and Zosyn as well as a consult with Dr. Hernadez and Dr. García and supplemental O2 as well as bronchodilators and aggressive pulmonary toilet. She did receive 2 units of platelets on admission as well as several other treatments without any changes in her platelets. Blood cultures were obtained. Vancomycin was also added to her antibiotic regimen. The patient was having [id number]-[id number] respiratory failure. She was requiring high amounts of oxygen despite the use of inhalers and diuretics. She continued to have right pleural effusion on her chest x-ray. She would have benefitted from a thoracentesis; however, secondary to her thrombocytopenia, that was not a possibility as she still was followed by pulmonology as well as her oncologist. Unfortunately, the patient developed many antibodies secondary to her multiple transfusions. Her last transfusion we got from [place]. It did take 4 days for this to arrive. The oncologist did speak to the patient about hospice. Palliative care was brought in again. Patient did decide to go home with hospice. Those arrangements have been made along with palliative care and social human services assistants. She does still complain of shortness of breath. She has been on OxyIR to assess with her dyspnea. The patient is going home today with [facility]. Patient was having some anxiety related to coping with and dying. She was placed on Xanax. That medication was helpful to the patient. Again, she is appropriate for discharge home today on hospice. Vital signs: Temperature is 97.4 degrees, heart rate 75, respirations 21, blood pressure is 114/40, and O2 is 100% on Venturi mask. DISCHARGE DIET: Regular. DISCHARGE MEDICATIONS: 1. Ventolin inhaler 2 puffs inhaled q.6 hours. 2. Tricor 145 mg p.o. daily. 3. [place] 5/325 p.o. q.4 hours. 4. Ativan 1 mg p.o. q.4 hours p.r.n. 5. Mevacor 20 mg p.o. daily. 6. Singulair 10 mg p.o. daily. 7. Spiriva 1 puff inhaled daily. 8. Zestril 25 mg p.o. at bedtime. 9. Ambien 5 mg p.o. at bedtime p.r.n. FOLLOWUP: The patient is being discharged home with [facility] as well as DME provided by [facility]. TIME SPENT: Discharge time 30 minutes. Dictated by SEYMOUR Levine for Lenin Akhtar MD cc: MD Davey Chan MD [facility]
== END 2017-02-23 13:05 | disposition hospice, home (50) ==
LOC: EDBD → ED 13:10 → SUATTDRO 16:37 → EDIPHOLD 16:37 → 3N 02-07 14:19
PROVIDERS: ATTEND Internal Medicine